=== PATIENT | female | born 1970 | race American Indian/Alaskan Native ===

== ENCOUNTER 2019-07-01 13:57 | Emergency (ER) | payer SELFPAY ==
--- NOTE | 2019-07-01 14:21 | EDM.PDOC ---
ED HPI GENERAL MEDICAL PROBLEM - General Chief Complaint: Neuro Symptoms/Deficits Stated Complaint: CRAMPING NUMBNESS LEFT SIDE Time Seen by Provider: 07/01/19 14:15 Source of Information: Reports: Patient, Family, Old Records, RN, RN Notes Reviewed History Limitations: Reports: Altered Mental Status - History of Present Illness INITIAL COMMENTS - FREE TEXT/NARRATIVE: Pt presents to ER from home by POV with c/o sudden onset of anxiety, rapid breathing, then the left side of her body went numb, and both hands cramped up, and then her legs cramped up. Pt states she also felt tingling around her mouth. She drank 2 pint bottles of Schnapps to try and feel better, but then decided to come to the ER. Pt states she has been very thirsty for 2 weeks. wire wheeler noted the above symptoms and found the pt to have an asymmetrical smile and called a "STROKE CODE". Pt denies Hx of CVA or TIA. She denies visual changes, difficulty swallowing, fever, chills, N/V, or chest pain. Onset: Today, Sudden Duration: Resolved Prior to Arrival Location: Reports: Upper Extremity, Left, Lower Extremity, Left, Generalized Quality: Reports: Other (Denies pain) Severity: Severe Improves with: Reports: None Worsens with: Reports: None Associated Symptoms: Reports: No Other Symptoms Left Leg Pain Score (Numeric/FACES): 5 - Related Data Allergies Allergy/AdvReac Type Severity Reaction Status Date / Time No Known Allergies Allergy Verified 06/22/18 11:35 Home Meds: Home Meds . [No Known Home Meds] 06/22/18 [History] Past Medical History HEENT History: Reports: Impaired Vision Cardiovascular History: Reports: None Respiratory History: Reports: None Gastrointestinal History: Reports: None Genitourinary History: Reports: None FLOWER GROWER History: Reports: None Musculoskeletal History: Reports: None Neurological History: Reports: None Psychiatric History: Reports: None Endocrine/Metabolic History: Reports: None Hematologic History: Reports: None Immunologic History: Reports: None Oncologic (Cancer) History: Reports: None Dermatologic History: Reports: None - Infectious Disease History Infectious Disease History: Reports: None - Past Surgical History Head Surgeries/Procedures: Reports: None Social & Family History - Family History Family Medical History: Noncontributory - Tobacco Use Smoking Status *Q: Current Every Day Smoker Tobacco Use Within Last Twelve Months: Cigarettes - Caffeine Use Caffeine Use: Reports: Soda - Alcohol Use Alcohol Use History: Yes Date of Last Drink: 07/01/19 Time of Last Drink: 14:00 Alcohol Use Frequency: Binges - Living Situation & Occupation Living situation: Reports: with Family Occupation: Unemployed ED ROS GENERAL - Review of Systems Review Of Systems: Comprehensive ROS is negative, except as noted in HPI. ED EXAM, NEURO - Physical Exam Exam: See Below Exam Limited By: Intoxication General Appearance: Alert, No Apparent Distress, Anxious, Obese, Other (Unkept appearance) Eye Exam: Bilateral Eye: EOMI, Nystagmus (Lateral gaze), PERRL Ears: Normal External Exam, Hearing Grossly Normal Nose: Normal Inspection, Normal Mucosa, No Blood Throat/Mouth: Normal Lips, Normal Oropharynx, Normal Voice, No Airway Compromise , Other (Several missing teeth) Head Exam: Atraumatic, Normocephalic Neck: Normal Inspection, Supple, Non-Tender, Full Range of Motion. No: Carotid Bruit, Lymphadenopathy (L), Lymphadenopathy (R) Respiratory/Chest: No Respiratory Distress, Lungs Clear, Normal Breath Sounds, No Accessory Muscle Use, Chest Non-Tender Cardiovascular: Normal Peripheral Pulses, Regular Rate, Rhythm, No Edema GI/Abdominal: Normal Bowel Sounds, Soft, Non-Tender, No Distention, Other ( Benign obese abdomen) (Female) Exam: Deferred Rectal (Female) Exam: Deferred Neurological: Alert, Normal Mood/Affect, Normal Dorsiflexion, CN II-XII Intact, Normal Plantar Flexion, Normal Gait, Normal Reflexes, No Motor/Sensory Deficits , Oriented x 3, Other (NIH Stroke Score: 0, Pt appears intoxicated.) Back Exam: Normal Inspection Extremities: Normal Inspection, Normal Range of Motion, Non-Tender, No Pedal Edema, Normal Capillary Refill Psychiatric: Anxious Skin Exam: Warm, Dry, Intact, Normal Color, No Rash EKG INTERPRETATION EKG Date: 07/01/19 Time: 14:33 Rhythm: Other (Sinus Tachy) Rate (Beats/Min): 105 [place]: Normal P-Wave: Present QRS: Other (Anterior Q waves) ST-T: Normal QT: Prolonged (borderline) Comparison: NA - No Prior EKG Course - Vital Signs Last Recorded V/S: Last Vital Signs Temp 97.9 F 07/01/19 14:20 Pulse 86 07/01/19 14:20 Resp 18 07/01/19 14:20 BP 132/97 H 07/01/19 14:20 Pulse Ox 96 07/01/19 14:20 - Orders/Labs/Meds Orders: Active Orders 24 hr Category Date Time Status Blood Glucose Check, Bedside [RC] ONETIME Care 07/01/19 14:22 Active Blood Glucose Check, Bedside [RC] ONETIME Care 07/01/19 14:45 Active Blood Glucose Check, Bedside [RC] ONETIME Care 07/01/19 15:22 Active Blood Glucose Check, Bedside [RC] ONETIME Care 07/01/19 16:08 Active EKG 12 Lead [EKG Documentation Completion] [RC] STAT Care 07/01/19 14:21 Active NIH Stroke Scale [RC] ASDIRECTED Care 07/01/19 14:21 Active Peripheral IV Care [RC] . DIRECTED Care 07/01/19 14:22 Active Chest 1V Frontal [CR] Stat Exams 07/01/19 14:21 Taken GLUCOSE,POC [POC] Routine Lab 07/01/19 15:43 Received GLUCOSE,POC [POC] Routine Lab 07/01/19 16:31 Received GLYCOSYLATED HEMOGLOBIN (HA1C) [REF] Stat Lab 07/01/19 14:35 Received Sodium Chloride 0.9% [Saline Flush] Med 07/01/19 14:21 Active 10 ml FLUSH ASDIRECTED PRN Peripheral IV Insertion Adult [OM.PC] Stat Oth 07/01/19 14:21 Ordered Medication Orders Sodium Chloride (Saline Flush) 10 ml FLUSH ASDIRECTED PRN PRN Reason: Keep Vein Open Last Admin: 07/01/19 15:09 Dose: 10 ml Admin: 07/01/19 14:43 Dose: 10 ml Labs: Laboratory Tests 07/01/19 07/01/19 07/01/19 Range/Units 14:29 14:35 14:35 WBC 6.4 (5.0-10.0) 10^3/uL RBC 3.99 L (4.2-5.4) 10^6/uL Hgb 13.8 (12.0-16.0) g/dL Hct 39.8 (37.0-47.0) % MCV 99.7 (80-100) fL MCH 34.6 H (27.0-34.0) pg MCHC 34.7 (33.0-35.0) g/dL Plt Count 181 (150-450) 10^3/uL Neut % (Auto) 53.6 (42.2-75.2) % Lymph % (Auto) 35.3 (20.5-50.1) % Wharton % (Auto) 8.8 H (2-8) % Eos % (Auto) 2.0 (1.0-3.0) % Baso % (Auto) 0.3 (0.0-1.0) % PT 9.0 (9.0-12.0) SEC INR 0.9 (0.9-1.2) APTT 20.6 L (22.0-34.0) SEC Sodium (135-145) mmol/L Potassium (3.6-5.0) mmol/L Chloride (101-111) mmol/L Carbon Dioxide (21.0-31.0) mmol/L Anion Gap BUN (7-18) mg/dL Creatinine (0.6-1.3) mg/dL Est Cr Clr Drug Dosing Estimated GFR (MDRD) BUN/Creatinine Ratio Glucose (74-105) mg/dL POC Glucose 449 H* (70-105) mg/dl Lactic Acid (0.5-2.2) mmol/L Calcium (8.4-10.2) mg/dl Magnesium (1.8-2.5) mg/dL Total Bilirubin (0.2-1.0) mg/dL AST (10-42) IU/L ALT (10-60) IU/L Alkaline Phosphatase (42-121) IU/L Troponin I (0.00-0.02) ng/ml Total Protein (6.7-8.2) g/dl Albumin (3.2-5.5) g/dl Globulin Albumin/Globulin Ratio Urine Color (YELLOW) Urine Appearance (CLEAR) Urine pH (5.0-9.0) Ur Specific Hope (1.005-1.030) Urine Protein (NEGATIVE) Urine Glucose (UA) (NEGATIVE) Urine Ketones (NEGATIVE) Urine Occult Blood (NEGATIVE) Urine Nitrite (NEGATIVE) Urine Bilirubin (NEGATIVE) Urine Urobilinogen (0.2-1.0) mg/dL Ur Leukocyte Esterase (NEGATIVE) Urine Opiates Screen (NEGATIVE) Ur Oxycodone Screen (NEGATIVE) Urine Methadone Screen (NEGATIVE) Ur Barbiturates Screen (NEGATIVE) U Tricyclic Antidepress (NEGATIVE) Ur Phencyclidine Scrn (NEGATIVE) Ur Amphetamine Screen (NEGATIVE) U Methamphetamines Scrn (NEGATIVE) Urine MDMA Screen (NEGATIVE) U Benzodiazepines Scrn (NEGATIVE) Urine Cocaine Screen (NEGATIVE) U Marijuana (THC) Screen (NEGATIVE) Ethyl Alcohol mg/dL Ketones 07/01/19 07/01/19 07/01/19 Range/Units 14:35 14:35 14:35 WBC (5.0-10.0) 10^3/uL RBC (4.2-5.4) 10^6/uL Hgb (12.0-16.0) g/dL Hct (37.0-47.0) % MCV (80-100) fL MCH (27.0-34.0) pg MCHC (33.0-35.0) g/dL Plt Count (150-450) 10^3/uL Neut % (Auto) (42.2-75.2) % Lymph % (Auto) (20.5-50.1) % Wharton % (Auto) (2-8) % Eos % (Auto) (1.0-3.0) % Baso % (Auto) (0.0-1.0) % PT (9.0-12.0) SEC INR (0.9-1.2) APTT (22.0-34.0) SEC Sodium 132 L D (135-145) mmol/L Potassium 3.3 L (3.6-5.0) mmol/L Chloride 94 L D (101-111) mmol/L Carbon Dioxide 25.0 (21.0-31.0) mmol/L Anion Gap 16.3 BUN 8 (7-18) mg/dL Creatinine 1.2 (0.6-1.3) mg/dL Est Cr Clr Drug Dosing TNP Estimated GFR (MDRD) 48 BUN/Creatinine Ratio 6.66 Glucose 501 H* (74-105) mg/dL POC Glucose (70-105) mg/dl Lactic Acid 3.0 H (0.5-2.2) mmol/L Calcium 8.1 L (8.4-10.2) mg/dl Magnesium 2.0 (1.8-2.5) mg/dL Total Bilirubin 0.8 (0.2-1.0) mg/dL AST 154 H (10-42) IU/L ALT 100 H (10-60) IU/L Alkaline Phosphatase 111 (42-121) IU/L Troponin I < 0.02 (0.00-0.02) ng/ml Total Protein 6.9 (6.7-8.2) g/dl Albumin 3.2 (3.2-5.5) g/dl Globulin 3.7 Albumin/Globulin Ratio 0.86 Urine Color (YELLOW) Urine Appearance (CLEAR) Urine pH (5.0-9.0) Ur Specific Hope (1.005-1.030) Urine Protein (NEGATIVE) Urine Glucose (UA) (NEGATIVE) Urine Ketones (NEGATIVE) Urine Occult Blood (NEGATIVE) Urine Nitrite (NEGATIVE) Urine Bilirubin (NEGATIVE) Urine Urobilinogen (0.2-1.0) mg/dL Ur Leukocyte Esterase (NEGATIVE) Urine Opiates Screen (NEGATIVE) Ur Oxycodone Screen (NEGATIVE) Urine Methadone Screen (NEGATIVE) Ur Barbiturates Screen (NEGATIVE) U Tricyclic Antidepress (NEGATIVE) Ur Phencyclidine Scrn (NEGATIVE) Ur Amphetamine Screen (NEGATIVE) U Methamphetamines Scrn (NEGATIVE) Urine MDMA Screen (NEGATIVE) U Benzodiazepines Scrn (NEGATIVE) Urine Cocaine Screen (NEGATIVE) U Marijuana (THC) Screen (NEGATIVE) Ethyl Alcohol 155 mg/dL Ketones 07/01/19 07/01/19 07/01/19 Range/Units 14:35 14:36 14:36 WBC (5.0-10.0) 10^3/uL RBC (4.2-5.4) 10^6/uL Hgb (12.0-16.0) g/dL Hct (37.0-47.0) % MCV (80-100) fL MCH (27.0-34.0) pg MCHC (33.0-35.0) g/dL Plt Count (150-450) 10^3/uL Neut % (Auto) (42.2-75.2) % Lymph % (Auto) (20.5-50.1) % [place]arton % (Auto) (2-8) % Eos % (Auto) (1.0-3.0) % Baso % (Auto) (0.0-1.0) % PT (9.0-12.0) SEC INR (0.9-1.2) APTT (22.0-34.0) SEC Sodium (135-145) mmol/L Potassium (3.6-5.0) mmol/L Chloride (101-111) mmol/L Carbon Dioxide (21.0-31.0) mmol/L Anion Gap BUN (7-18) mg/dL Creatinine (0.6-1.3) mg/dL Est Cr Clr Drug Dosing Estimated GFR (MDRD) BUN/Creatinine Ratio Glucose (74-105) mg/dL POC Glucose (70-105) mg/dl Lactic Acid (0.5-2.2) mmol/L Calcium (8.4-10.2) mg/dl Magnesium (1.8-2.5) mg/dL Total Bilirubin (0.2-1.0) mg/dL AST (10-42) IU/L ALT (10-60) IU/L Alkaline Phosphatase (42-121) IU/L Troponin I (0.00-0.02) ng/ml Total Protein (6.7-8.2) g/dl Albumin (3.2-5.5) g/dl Globulin Albumin/Globulin Ratio Urine Color Yellow (YELLOW) Urine Appearance Clear (CLEAR) Urine pH 7.0 (5.0-9.0) Ur Specific Hope 1.010 (1.005-1.030) Urine Protein Negative (NEGATIVE) Urine Glucose (UA) >=1000 H (NEGATIVE) Urine Ketones Negative (NEGATIVE) Urine Occult Blood Negative (NEGATIVE) Urine Nitrite Negative (NEGATIVE) Urine Bilirubin Negative (NEGATIVE) Urine Urobilinogen 1.0 (0.2-1.0) mg/dL Ur Leukocyte Esterase Negative (NEGATIVE) Urine Opiates Screen Negative (NEGATIVE) Ur Oxycodone Screen Negative (NEGATIVE) Urine Methadone Screen Negative (NEGATIVE) Ur Barbiturates Screen Negative (NEGATIVE) U Tricyclic Antidepress Negative (NEGATIVE) Ur Phencyclidine Scrn Negative (NEGATIVE) Ur Amphetamine Screen Negative (NEGATIVE) U Methamphetamines Scrn Negative (NEGATIVE) Urine MDMA Screen Negative (NEGATIVE) U Benzodiazepines Scrn Negative (NEGATIVE) Urine Cocaine Screen Negative (NEGATIVE) U Marijuana (THC) Screen Negative (NEGATIVE) Ethyl Alcohol mg/dL Ketones Negative 07/01/19 Range/Units 15:01 WBC (5.0-10.0) 10^3/uL RBC (4.2-5.4) 10^6/uL Hgb (12.0-16.0) g/dL Hct (37.0-47.0) % MCV (80-100) fL MCH (27.0-34.0) pg MCHC (33.0-35.0) g/dL Plt Count (150-450) 10^3/uL Neut % (Auto) (42.2-75.2) % Lymph % (Auto) (20.5-50.1) % [place] % (Auto) (2-8) % Eos % (Auto) (1.0-3.0) % Baso % (Auto) (0.0-1.0) % PT (9.0-12.0) SEC INR (0.9-1.2) APTT (22.0-34.0) SEC Sodium (135-145) mmol/L Potassium (3.6-5.0) mmol/L Chloride (101-111) mmol/L Carbon Dioxide (21.0-31.0) mmol/L Anion Gap BUN (7-18) mg/dL Creatinine (0.6-1.3) mg/dL Est Cr Clr Drug Dosing Estimated GFR (MDRD) BUN/Creatinine Ratio Glucose (74-105) mg/dL POC Glucose 446 H* (70-105) mg/dl Lactic Acid (0.5-2.2) mmol/L Calcium (8.4-10.2) mg/dl Magnesium (1.8-2.5) mg/dL Total Bilirubin (0.2-1.0) mg/dL AST (10-42) IU/L ALT (10-60) IU/L Alkaline Phosphatase (42-121) IU/L Troponin I (0.00-0.02) ng/ml Total Protein (6.7-8.2) g/dl Albumin (3.2-5.5) g/dl Globulin Albumin/Globulin Ratio Urine Color (YELLOW) Urine Appearance (CLEAR) Urine pH (5.0-9.0) Ur Specific [place] (1.005-1.030) Urine Protein (NEGATIVE) Urine Glucose (UA) (NEGATIVE) Urine Ketones (NEGATIVE) Urine Occult Blood (NEGATIVE) Urine Nitrite (NEGATIVE) Urine Bilirubin (NEGATIVE) Urine Urobilinogen (0.2-1.0) mg/dL Ur Leukocyte Esterase (NEGATIVE) Urine Opiates Screen (NEGATIVE) Ur Oxycodone Screen (NEGATIVE) Urine Methadone Screen (NEGATIVE) Ur Barbiturates Screen (NEGATIVE) U Tricyclic Antidepress (NEGATIVE) Ur Phencyclidine Scrn (NEGATIVE) Ur Amphetamine Screen (NEGATIVE) U Methamphetamines Scrn (NEGATIVE) Urine MDMA Screen (NEGATIVE) U Benzodiazepines Scrn (NEGATIVE) Urine Cocaine Screen (NEGATIVE) U Marijuana (THC) Screen (NEGATIVE) Ethyl Alcohol mg/dL Ketones Meds: Medications Generic Name Dose Route Start Last Admin Trade Name Freq PRN Reason Stop Dose Admin Sodium Chloride 10 ml 07/01/19 14:21 07/01/19 15:09 Saline Flush FLUSH 10 ml ASDIRECTED PRN Administration Keep Vein Open Discontinued Medications Generic Name Dose Route Start Last Admin Trade Name Freq PRN Reason Stop Dose Admin Sodium Chloride 1,000 mls @ 999 mls/hr 07/01/19 14:44 07/01/19 15:03 Normal Saline IV 07/01/19 15:44 999 mls/hr .BOLUS ONE Administration Insulin Human Regular 10 unit 07/01/19 14:45 07/01/19 15:04 Humulin R SUBCUT 07/01/19 14:46 10 units ONETIME ONE Administration - Radiology Interpretation Free Text/Narrative:: CT Head: chronic microvascular changes, pansinusitis, no acute findings per Rad. report. CXR: no acute process, see Rad. report. 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 use Qualified Code(s ): E11.65 - Type 2 diabetes mellitus with hyperglycemia Acute alcohol intoxication Qualifiers: Complication of substance-induced condition: with unspecified complication Qualified Code(s): F10.929 - Alcohol use, unspecified with intoxication, unspecified Pansinusitis Qualifiers: Chronicity: unspecified Qualified Code(s): J32.4 - Chronic pansinusitis - Discharge Information *PRESCRIPTION DRUG MONITORING PROGRAM REVIEWED*: No *COPY OF PRESCRIPTION DRUG MONITORING REPORT IN PATIENT HELENE: No Instructions: Type 2 Diabetes Mellitus, Diagnosis, Adult, Alcohol Use Disorder , Panic Attack, [id number], Sinusitis, Adult, [id number] Forms: ED Department Discharge Additional Instructions: Rx: Metformin 1000mg Rx: Augmentin 875mg Abstain from alcohol consumption. Drink plenty of water. Avoid sugary foods. Limit intake of breads, rice, potato, corn and other. Look at [email or web address] for dietary information. Try to quit smoking. Follow up in clinic in the next 3 to 5 days for further diabetic evaluation and treatment. Sepsis Event Note - Focused Exam Vital Signs: Vital Signs Temp Pulse Resp BP Pulse Ox 07/01/19 14:20 97.9 F 86 18 132/97 H 96 Date Exam was Performed: 07/01/19 Time Exam was Performed: 16:33 - My Orders Last 24 Hours: My Active Orders 07/01/19 14:21 EKG 12 Lead [EKG Documentation Completion] [RC] STAT NIH Stroke Scale [RC] ASDIRECTED Chest 1V Frontal [CR] Stat Sodium Chloride 0.9% [Saline Flush] 10 ml FLUSH ASDIRECTED PRN Peripheral IV Insertion Adult [OM.PC] Stat 07/01/19 14:22 Blood Glucose Check, Bedside [RC] ONETIME Peripheral IV Care [RC] . DIRECTED 07/01/19 14:35 GLYCOSYLATED HEMOGLOBIN (HA1C) [REF] Stat 07/01/19 14:45 Blood Glucose Check, Bedside [RC] ONETIME 07/01/19 15:22 Blood Glucose Check, Bedside [RC] ONETIME 07/01/19 15:43 GLUCOSE,POC [POC] Routine 07/01/19 16:08 Blood Glucose Check, Bedside [RC] ONETIME 07/01/19 16:31 GLUCOSE,POC [POC] Routine - Assessment/Plan Last 24 Hours: My Active Orders 07/01/19 14:21 EKG 12 Lead [EKG Documentation Completion] [RC] STAT NIH Stroke Scale [RC] ASDIRECTED Chest 1V Frontal [CR] Stat Sodium Chloride 0.9% [Saline Flush] 10 ml FLUSH ASDIRECTED PRN Peripheral IV Insertion Adult [OM.PC] Stat 07/01/19 14:22 Blood Glucose Check, Bedside [RC] ONETIME Peripheral IV Care [RC] . DIRECTED 07/01/19 14:35 GLYCOSYLATED HEMOGLOBIN (HA1C) [REF] Stat 07/01/19 14:45 Blood Glucose Check, Bedside [RC] ONETIME 07/01/19 15:22 Blood Glucose Check, Bedside [RC] ONETIME 07/01/19 15:43 GLUCOSE,POC [POC] Routine 07/01/19 16:08 Blood Glucose Check, Bedside [RC] ONETIME 07/01/19 16:31 GLUCOSE,POC [POC] Routine
--- NOTE | 2019-07-01 14:37 | CT ---
EXAMINATION: Head wo Cont SEX: Female AGE: 49 years CLINICAL HISTORY: 49-year-old female acute onset of weakness and slurred speech. STROKE CODE: Scan technique: Volume acquisition of data emergency unenhanced CT scan of the head and brain obtained with the patient lying supine on the Siemens multi slice scanner [place], [place]. All data archived in the PAC system for storage, reformatting axial/sagittal/coronal planes and study (bone/brain windows). INTERPRETATION: 1. Uniformly thick bony calvarium without sign of skull fracture, underlying brain contusion or epidural/subdural hematoma. 2. Atrophy out of proportion to age symmetric with underlying mirror-image normal ventricular system. No hydrocephalus. 3. Subtle scattered areas of decreased attenuation identified throughout the periventricular white matter and subcortical back matter of both cerebral hemispheres characteristic of microvascular ischemic changes. Diabetic? Hypertension? 4. Physiologic midline pineal and symmetric choroid plexus calcifications. No intracerebral/intraventricular/subarachnoid bleed. 5. No supratentorial or posterior fossa mass lesion. Cerebellum and brainstem unremarkable. 6. Extensive mucoperiosteal inflammation involving the maxillary, ethmoid and sphenoid sinuses bilaterally i.e. SINUSITIS. Symmetric clear pneumatization of the mastoid sinuses bilaterally. CONCLUSION: Pansinusitis. Chronic microvascular ischemic changes. No sign of acute intracranial bleed. No intracranial mass or hydrocephalus.
[2019-07-01] MEDS: Sodium Chloride 0.9% 10 ML Syringe FLUSH PRN ×2 (14:43→15:09)
[2019-07-01] MEDS ORDERED: Sodium Chloride 0.9% 1,000 ML IV ONE (14:44)
[2019-07-01] MEDS ORDERED: Insulin Regular, Human 100 Units/ML 3 ML Vial SUBCUT ONE (14:45)
[2019-07-01 15:04] LABS: ANION GAP 16.3; CHLORIDE,CL 94 mmol/L (101-111); SODIUM,NA 132 mmol/L (135-145)
--- NOTE | 2019-07-01 17:05 | CR ---
EXAMINATION: Chest 1V Frontal SEX: Female AGE: 49 years CLINICAL HISTORY: 49-year-old obese female with weakness and slurred speech. STROKE CODE: poss. aspiration. INTERPRETATION: 1. Eventration right hemidiaphragm. Normal cardiac silhouette and bony thorax. 2. No new signs of heart failure, lung mass or focal lobar pneumonia when compared directly back to 22 June 2018 exam. 3. No lung mass, hilar lymphadenopathy or focal lobar pneumonia. 4. No atelectasis/collapse. No pneumothorax. CONCLUSION: No acute new cardiopulmonary abnormality.
== END 2019-07-01 16:54 | disposition home or self-care (01) ==
LOC: DL.ED 13:57
DX: F41.0 Panic disorder [episodic paroxysmal anxiety] (principal); J32.4 Chronic pansinusitis; E11.65 Type 2 diabetes mellitus with hyperglycemia; R74.8 Abnormal levels of other serum enzymes; F10.129 Alcohol abuse with intoxication, unspecified; Y90.6 Blood alcohol level of 120-199 mg/100 ml; F17.210 Nicotine dependence, cigarettes, uncomplicated
CPT/HCPCS: 36415; 70450; 71045; 80053; 80305; 80320; 81003; 82009; 82962; 83036; 83605; 83735; 84484; 85025; 85610; 85730; 93005; 96360; 99284; J1815; J7030; G0480

== ENCOUNTER 2019-09-23 16:03 | Emergency (ER) | payer SELFPAY ==
[2019-09-23] MEDS ORDERED: Insulin Regular, Human 100 Units/ML 3 ML Vial SUBCUT ONE (17:27)
== END 2019-09-23 17:18 | disposition left against medical advice (07) ==
LOC: DL.ED 16:03
DX: Z53.21 Procedure and treatment not carried out due to patient leaving prior to being seen by health care provider (principal)
CPT/HCPCS: 82962

== ENCOUNTER 2019-10-06 20:46 | Emergency (ER) | payer SELFPAY ==
[2019-10-06] MEDS ORDERED: Insulin Regular, Human 100 Units/ML 3 ML Vial IV ONE (20:58)
[2019-10-06] MEDS ORDERED: Sodium Chloride 0.9% 1,000 ML IV ONE (21:09)
--- NOTE | 2019-10-06 21:33 | EDM.PDOC ---
ED HPI GENERAL MEDICAL PROBLEM - General Chief Complaint: Diabetic Complaint Stated Complaint: DIABETES PROBLEMS Time Seen by Provider: 10/06/19 20:55 Source of Information: Reports: Patient, RN Notes Reviewed History Limitations: Reports: Intoxication - History of Present Illness INITIAL COMMENTS - FREE TEXT/NARRATIVE: ED with c/o hi blood sugar of 510 tonight, usually when takes it it is 475. Diagnosed with type 11 in June, has not done any clinic follow up, states doesn't have time because she is in mourning. Spouse 6 months ago. Checks blood sugar about every 2 weeks, Took one of his metformin tonight. Requesting inhaler for COPD. No reported fever or chills. No vomiting. Faint odor ETOH. 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 Musculoskeletal History: Reports: None Neurological History: Reports: None Psychiatric History: Reports: Addiction Endocrine/Metabolic History: Reports: Diabetes, Type II, Obesity/BMI 30+ Hematologic History: Reports: None Immunologic History: Reports: None Oncologic (Cancer) History: Reports: None Dermatologic History: Reports: None - Infectious Disease History Infectious Disease History: Reports: None - Past Surgical History Head Surgeries/Procedures: Reports: None Social & Family History - Family History Family Medical History: Noncontributory - Tobacco Use Smoking Status *Q: Current Every Day Smoker Years of Tobacco use: 21 Packs/Tins Daily: 0.1 Used Tobacco, but Quit: No Second Hand Smoke Exposure: Yes - Caffeine Use Caffeine Use: Reports: Coffee - Alcohol Use Date of Last Drink: 10/06/19 Time of Last Drink: 19:00 - Recreational Drug Use Recreational Drug Use: No - Living Situation & Occupation Living situation: Reports: with Family Occupation: Unemployed ED ROS GENERAL - Review of Systems Review Of Systems: Comprehensive ROS is negative, except as noted in HPI. ED EXAM GENERAL NO PERIP PULSE - Physical Exam Exam: See Below Exam Limited By: No Limitations General Appearance: Alert, Anxious, Obese Eye Exam: Bilateral Eye: EOMI Ears: Normal External Exam Nose: Normal Inspection Throat/Mouth: Normal Inspection Head: Atraumatic, Normocephalic Respiratory/Chest: No Respiratory Distress, Lungs Clear, Normal Breath Sounds, Other (ocassional dry cough) Cardiovascular: Regular Rate, Rhythm, No Edema GI/Abdominal: Normal Bowel Sounds Neurological: Alert, Oriented Psychiatric: Anxious, Other (intoxicated) Course - Vital Signs Last Recorded V/S: Last Vital Signs Temp 96.8 F L 10/06/19 22:24 Pulse 98 10/06/19 22:24 Resp 21 H 10/06/19 22:24 BP 121/76 10/06/19 22:24 Pulse Ox 96 10/06/19 22:24 - Orders/Labs/Meds Orders: Active Orders 24 hr Category Date Time Status Glucose [Blood Glucose Check, Bedside] [RC] ONETIME Care 10/06/19 21:20 Active Glucose [Blood Glucose Check, Bedside] [RC] ONETIME Care 10/06/19 21:45 Active Glucose [Blood Glucose Check, Bedside] [RC] ONETIME Care 10/06/19 21:59 Active CXR [Chest 1V Frontal] [CR] Urgent Exams 10/06/19 21:21 Taken CHLAMYDIA AND GONORRHEA BY [facility] Urgent Lab 10/06/19 20:54 Received CULTURE URINE [RM] Stat Lab 10/06/19 20:56 Received Labs: Laboratory Tests 10/06/19 10/06/19 10/06/19 Range/Units 20:50 20:56 20:56 WBC (5.0-10.0) 10^3/uL RBC (4.2-5.4) 10^6/uL Hgb (12.0-16.0) g/dL Hct (37.0-47.0) % MCV (80-100) fL MCH (27.0-34.0) pg MCHC (33.0-35.0) g/dL Plt Count (150-450) 10^3/uL Neut % (Auto) (42.2-75.2) % Lymph % (Auto) (20.5-50.1) % [place] % (Auto) (2-8) % Eos % (Auto) (1.0-3.0) % Baso % (Auto) (0.0-1.0) % Sodium (136-145) mmol/L Potassium (3.5-5.1) mmol/L Chloride (98-107) mmol/L Carbon Dioxide (21-32) mmol/L Anion Gap (7-13) mEq/L BUN (7-18) mg/dL Creatinine (0.55-1.02) mg/dL Est Cr Clr Drug Dosing mL/min Estimated GFR (MDRD) BUN/Creatinine Ratio (No establ ref range) Glucose (74-99) mg/dL POC Glucose 438 H* (70-105) mg/dl Lactic Acid (0.4-2.0) mmol/L Calcium (8.5-10.1) mg/dL Total Bilirubin (0.2-1.0) mg/dL AST (15-37) U/L ALT (14-59) U/L Alkaline Phosphatase (46-116) U/L Total Protein (6.4-8.2) g/dL Albumin (3.4-5.0) g/dL Globulin Albumin/Globulin Ratio Amylase (25-115) U/L Lipase (73-393) U/L Urine Color Light yellow (YELLOW) Urine Appearance Slightly cloudy (CLEAR) Urine pH 6.5 (5.0-9.0) Ur Specific [place] 1.010 (1.005-1.030) Urine Protein Negative (NEGATIVE) Urine Glucose (UA) 500 H (NEGATIVE) Urine Ketones Negative (NEGATIVE) Urine Occult Blood Trace-intact H (NEGATIVE) Urine Nitrite Positive H (NEGATIVE) Urine Bilirubin Negative (NEGATIVE) Urine Urobilinogen 1.0 (0.2-1.0) mg/dL Ur Leukocyte Esterase Negative (NEGATIVE) Urine RBC 0-5 /HPF Urine WBC 5-10 H (0-5/HPF) /HPF Ur Epithelial Cells Few (NOT SEEN) /HPF Amorphous Sediment Few (NOT SEEN) /HPF Urine Bacteria Many H (0-FEW/HPF) /HPF Urine Mucus Moderate H (NOT SEEN) /LPF Urine Trichomonas Present H (NOT SEEN) /HPF Urine Opiates Screen Negative (NEGATIVE) Ur Oxycodone Screen Negative (NEGATIVE) Urine Methadone Screen Negative (NEGATIVE) Ur Barbiturates Screen Negative (NEGATIVE) U Tricyclic Antidepress Negative (NEGATIVE) Ur Phencyclidine Scrn Negative (NEGATIVE) Ur Amphetamine Screen Negative (NEGATIVE) U Methamphetamines Scrn Negative (NEGATIVE) Urine MDMA Screen Negative (NEGATIVE) U Benzodiazepines Scrn Negative (NEGATIVE) Urine Cocaine Screen Negative (NEGATIVE) U Marijuana (THC) Screen Negative (NEGATIVE) Ethyl Alcohol (0) mg/dL 10/06/19 10/06/19 10/06/19 Range/Units 21:03 21:03 21:03 WBC 8.4 (5.0-10.0) 10^3/uL RBC 4.59 (4.2-5.4) 10^6/uL Hgb 15.5 D (12.0-16.0) g/dL Hct 44.9 (37.0-47.0) % MCV 97.8 (80-100) fL MCH 33.8 (27.0-34.0) pg MCHC 34.5 (33.0-35.0) g/dL Plt Count 192 (150-450) 10^3/uL Neut % (Auto) 52.4 (42.2-75.2) % Lymph % (Auto) 38.9 (20.5-50.1) % [place] % (Auto) 5.6 (2-8) % Eos % (Auto) 2.6 (1.0-3.0) % Baso % (Auto) 0.5 (0.0-1.0) % Sodium 134 L (136-145) mmol/L Potassium 3.6 (3.5-5.1) mmol/L Chloride 93 L (98-107) mmol/L Carbon Dioxide 28 (21-32) mmol/L Anion Gap 16.6 H (7-13) mEq/L BUN 3 L (7-18) mg/dL Creatinine 0.97 (0.55-1.02) mg/dL Est Cr Clr Drug Dosing 64.52 mL/min Estimated GFR (MDRD) > 60 BUN/Creatinine Ratio 3.1 (No establ ref range) Glucose 544 H* (74-99) mg/dL POC Glucose (70-105) mg/dl Lactic Acid 3.9 H* (0.4-2.0) mmol/L Calcium 8.8 (8.5-10.1) mg/dL Total Bilirubin 0.4 (0.2-1.0) mg/dL AST 65 H (15-37) U/L ALT 71 H (14-59) U/L Alkaline Phosphatase 162 H (46-116) U/L Total Protein 7.7 (6.4-8.2) g/dL Albumin 3.8 (3.4-5.0) g/dL Globulin 3.9 Albumin/Globulin Ratio 1.0 Amylase 38 (25-115) U/L Lipase 293 (73-393) U/L Urine Color (YELLOW) Urine Appearance (CLEAR) Urine pH (5.0-9.0) Ur Specific [place] (1.005-1.030) Urine Protein (NEGATIVE) Urine Glucose (UA) (NEGATIVE) Urine Ketones (NEGATIVE) Urine Occult Blood (NEGATIVE) Urine Nitrite (NEGATIVE) Urine Bilirubin (NEGATIVE) Urine Urobilinogen (0.2-1.0) mg/dL Ur Leukocyte Esterase (NEGATIVE) Urine RBC /HPF Urine WBC (0-5/HPF) /HPF Ur Epithelial Cells (NOT SEEN) /HPF Amorphous Sediment (NOT SEEN) /HPF Urine Bacteria (0-FEW/HPF) /HPF Urine Mucus (NOT SEEN) /LPF Urine Trichomonas (NOT SEEN) /HPF Urine Opiates Screen (NEGATIVE) Ur Oxycodone Screen (NEGATIVE) Urine Methadone Screen (NEGATIVE) Ur Barbiturates Screen (NEGATIVE) U Tricyclic Antidepress (NEGATIVE) Ur Phencyclidine Scrn (NEGATIVE) Ur Amphetamine Screen (NEGATIVE) U Methamphetamines Scrn (NEGATIVE) Urine MDMA Screen (NEGATIVE) U Benzodiazepines Scrn (NEGATIVE) Urine Cocaine Screen (NEGATIVE) U Marijuana (THC) Screen (NEGATIVE) Ethyl Alcohol 228 (0) mg/dL 10/06/19 Range/Units 21:42 WBC (5.0-10.0) 10^3/uL RBC (4.2-5.4) 10^6/uL Hgb (12.0-16.0) g/dL Hct (37.0-47.0) % MCV (80-100) fL MCH (27.0-34.0) pg MCHC (33.0-35.0) g/dL Plt Count (150-450) 10^3/uL Neut % (Auto) (42.2-75.2) % Lymph % (Auto) (20.5-50.1) % [place] % (Auto) (2-8) % Eos % (Auto) (1.0-3.0) % Baso % (Auto) (0.0-1.0) % Sodium (136-145) mmol/L Potassium (3.5-5.1) mmol/L Chloride (98-107) mmol/L Carbon Dioxide (21-32) mmol/L Anion Gap (7-13) mEq/L BUN (7-18) mg/dL Creatinine (0.55-1.02) mg/dL Est Cr Clr Drug Dosing mL/min Estimated GFR (MDRD) BUN/Creatinine Ratio (No establ ref range) Glucose (74-99) mg/dL POC Glucose 263 H (70-105) mg/dl Lactic Acid (0.4-2.0) mmol/L Calcium (8.5-10.1) mg/dL Total Bilirubin (0.2-1.0) mg/dL AST (15-37) U/L ALT (14-59) U/L Alkaline Phosphatase (46-116) U/L Total Protein (6.4-8.2) g/dL Albumin (3.4-5.0) g/dL Globulin Albumin/Globulin Ratio Amylase (25-115) U/L Lipase (73-393) U/L Urine Color (YELLOW) Urine Appearance (CLEAR) Urine pH (5.0-9.0) Ur Specific [place] (1.005-1.030) Urine Protein (NEGATIVE) Urine Glucose (UA) (NEGATIVE) Urine Ketones (NEGATIVE) Urine Occult Blood (NEGATIVE) Urine Nitrite (NEGATIVE) Urine Bilirubin (NEGATIVE) Urine Urobilinogen (0.2-1.0) mg/dL Ur Leukocyte Esterase (NEGATIVE) Urine RBC /HPF Urine WBC (0-5/HPF) /HPF Ur Epithelial Cells (NOT SEEN) /HPF Amorphous Sediment (NOT SEEN) /HPF Urine Bacteria (0-FEW/HPF) /HPF Urine Mucus (NOT SEEN) /LPF Urine Trichomonas (NOT SEEN) /HPF Urine Opiates Screen (NEGATIVE) Ur Oxycodone Screen (NEGATIVE) Urine Methadone Screen (NEGATIVE) Ur Barbiturates Screen (NEGATIVE) U Tricyclic Antidepress (NEGATIVE) Ur Phencyclidine Scrn (NEGATIVE) Ur Amphetamine Screen (NEGATIVE) U Methamphetamines Scrn (NEGATIVE) Urine MDMA Screen (NEGATIVE) U Benzodiazepines Scrn (NEGATIVE) Urine Cocaine Screen (NEGATIVE) U Marijuana (THC) Screen (NEGATIVE) Ethyl Alcohol (0) mg/dL Meds: Medications Discontinued Medications Generic Name Dose Route Start Last Admin Trade Name Amber PRN Reason Stop Dose Admin Albuterol Confirm 10/06/19 21:54 10/06/19 21:59 Proventil Hfa Administered 10/06/19 21:55 Not Given Dose 6.7 gm INH .STK-MED ONE Azithromycin 1,000 mg 10/06/19 21:47 10/06/19 22:00 Zithromax PO 10/06/19 21:48 1,000 mg ONETIME ONE Administration Sodium Chloride 1,000 mls @ 999 mls/hr 10/06/19 21:09 10/06/19 21:15 Normal Saline IV 10/06/19 22:09 999 mls/hr .BOLUS ONE Administration Ceftriaxone Sodium 1 gm/ 50 mls @ 100 mls/hr 10/06/19 21:49 10/06/19 21:59 Sodium Chloride IV 10/06/19 22:18 100 mls/hr ONETIME ONE Administration Insulin Human Regular 10 unit 10/06/19 20:58 10/06/19 21:03 Humulin R IV 10/06/19 20:59 10 units ONETIME ONE Administration - Radiology Interpretation Free Text/Narrative:: CXR negtative Departure - Departure Time of Disposition: 21:59 Disposition: Home, Self-Care 01 Condition: Good Clinical Impression: infection, trichomonal, History of COPD Hyperglycemia due to type 2 diabetes mellitus Qualifiers: 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: without 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 use Qualified Code(s ): E11.65 - Type 2 diabetes mellitus with hyperglycemia Acute alcohol intoxication Qualifiers: Complication of substance-induced condition: with unspecified complication Qualified Code(s): F10.929 - Alcohol use, unspecified with intoxication, unspecified UTI (urinary tract infection) Qualifiers: Urinary tract infection type: acute cystitis Hematuria presence: without hematuria Qualified Code(s): N30.00 - Acute cystitis without hematuria - Discharge Information *PRESCRIPTION DRUG MONITORING PROGRAM REVIEWED*: No *COPY OF PRESCRIPTION DRUG MONITORING REPORT IN PATIENT HELENE: No Instructions: Urinary Tract Infection, Adult, [id number], Trichomoniasis, Type 2 Diabetes Mellitus, Diagnosis, Adult, [id number] Forms: ED Department Discharge Additional Instructions: Follow up in clinic this week stop drinking alcohol humidifier avoid tobacco smoke and other irritants cipro 500mg one twice daily for 5 days flagyl 500mg one twice daily for one week for infection. DO NOT drink while taking this medication!! albuterol 2 puffs every 4 hours as needed for cough metformin 500mg one twice daily #30 Need to see primary care/ clinic visit for additional refills Sepsis Event Note - Evaluation Sepsis Screening Result: No Definite Risk - Focused Exam Vital Signs: Vital Signs Temp Pulse Resp BP Pulse Ox 10/06/19 22:24 96.8 F L 98 21 H 121/76 96 10/06/19 20:53 97.6 F 117 H 20 161/129 H 96 10/06/19 20:52 96.5 F L 114 H 21 H 156/124 H 96 Date Exam was Performed: 10/07/19 Time Exam was Performed: 04:52 - My Orders Last 24 Hours: My Active Orders 10/06/19 20:54 CHLAMYDIA AND GONORRHEA BY [facility] Urgent 10/06/19 20:56 CULTURE URINE [RM] Stat 10/06/19 21:20 Glucose [Blood Glucose Check, Bedside] [RC] ONETIME 10/06/19 21:21 CXR [Chest 1V Frontal] [CR] Urgent 10/06/19 21:45 Glucose [Blood Glucose Check, Bedside] [RC] ONETIME 10/06/19 21:59 Glucose [Blood Glucose Check, Bedside] [RC] ONETIME - Assessment/Plan Last 24 Hours: My Active Orders 10/06/19 20:54 CHLAMYDIA AND GONORRHEA BY [facility] Urgent 10/06/19 20:56 CULTURE URINE [RM] Stat 10/06/19 21:20 Glucose [Blood Glucose Check, Bedside] [RC] ONETIME 10/06/19 21:21 CXR [Chest 1V Frontal] [CR] Urgent 10/06/19 21:45 Glucose [Blood Glucose Check, Bedside] [RC] ONETIME 10/06/19 21:59 Glucose [Blood Glucose Check, Bedside] [RC] ONETIME
[2019-10-06 21:37] LABS: ANION GAP 16.6 mEq/L (7-13); CHLORIDE,CL 93 mmol/L (98-107); SODIUM,NA 134 mmol/L (136-145)
[2019-10-06] MEDS ORDERED: Azithromycin 250 MG Tab PO ONE (21:47)
[2019-10-06] MEDS ORDERED: cefTRIAXone 1 GM in Sodium Chloride 0.9% 50 ML IV ONE (21:49)
[2019-10-06] MEDS ORDERED: Albuterol 6.7 GM Inhaler INH ONE (21:54)
== END 2019-10-06 22:40 | disposition home or self-care (01) ==
LOC: DL.ED 20:46
DX: E11.65 Type 2 diabetes mellitus with hyperglycemia (principal); N30.00 Acute cystitis without hematuria; F10.129 Alcohol abuse with intoxication, unspecified; A59.9 Trichomoniasis, unspecified; J44.9 Chronic obstructive pulmonary disease, unspecified; I10 Essential (primary) hypertension; E66.9 Obesity, unspecified; Z68.35 Body mass index [BMI] 35.0-35.9, adult; F17.210 Nicotine dependence, cigarettes, uncomplicated
CPT/HCPCS: 36415; 71045; 80053; 80305-QW; 80307; 81001; 82150; 82962; 83605; 83690; 85025; 87086; 87088; 87186; 87491; 87591; 96361; 96365; 99285-25; A9270-GY; J0696; J1815-GY; J7030; J7050

== ENCOUNTER 2019-10-27 13:36 | Emergency (ER) | payer SELFPAY ==
--- NOTE | 2019-10-27 14:37 | EDM.PDOC ---
ED HPI GENERAL MEDICAL PROBLEM - General Stated Complaint: PAIN/SWELLING OF HAND Time Seen by Provider: 10/27/19 14:10 Source of Information: Reports: Patient History Limitations: Reports: Other - History of Present Illness INITIAL COMMENTS - FREE TEXT/NARRATIVE: This 49 yo female patient reports to the ED due to pain in her hands (right worse than left), wrists, elbows, shoulders, knees and hips. The patient reports she attempted to see her primary care provider, but reports she was told to go to the ED. The patient reports she does drink a 6 pack of vodka seltzers per day. The patient reports her pain has been getting worse. The patient reports she was on prednisone up to today, but has not been feeling any better. The patient's speech was slurred throughout the visit. Duration: Day(s):, Constant, Getting Worse Location: Reports: Upper Extremity, Left, Upper Extremity, Right, Lower Extremity, Left, Lower Extremity, Right Quality: Reports: Ache, Dull Severity: Moderate Improves with: Reports: None Worsens with: Reports: None Context: Reports: Other - Related Data Allergies Allergy/AdvReac Type Severity Reaction Status Date / Time No Known Allergies Allergy Verified 10/06/19 20:54 Home Meds: Home Meds Albuterol Sulfate [Albuterol Sulfate Hfa] 2 inh INH Q4H PRN 10/06/19 [History] Past Medical History HEENT History: Reports: Impaired Vision Cardiovascular History: Reports: Hypertension Respiratory History: Reports: Asthma, COPD Gastrointestinal History: Reports: None Genitourinary History: Reports: None 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 Musculoskeletal History: Reports: None Neurological History: Reports: None Psychiatric History: Reports: Addiction Endocrine/Metabolic History: Reports: Diabetes, Type II, Obesity/BMI 30+ Hematologic History: Reports: None Immunologic History: Reports: None Oncologic (Cancer) History: Reports: None Dermatologic History: Reports: None - Infectious Disease History Infectious Disease History: Reports: None - Past Surgical History Head Surgeries/Procedures: Reports: None Social & Family History - Family History Family Medical History: Noncontributory - Caffeine Use Caffeine Use: Reports: Coffee - Living Situation & Occupation Living situation: Reports: with Family Occupation: Unemployed ED ROS GENERAL - Review of Systems Review Of Systems: Comprehensive ROS is negative, except as noted in HPI. ED EXAM, GENERAL - Physical Exam Exam: See Below Exam Limited By: Other (Poor historian, speech slurred) General Appearance: Alert, Moderate Distress Eye Exam: Bilateral Eye: EOMI, PERRL (sluggish, but reactive) Ears: Normal External Exam, Normal Canal, Hearing Grossly Normal, Normal TMs Nose: Normal Inspection, Normal Mucosa, No Blood Throat/Mouth: Normal Inspection, Normal Lips, Normal Teeth, Normal Gums, Normal Oropharynx, Normal Voice, No Airway Compromise Head: Atraumatic, Normocephalic Neck: Normal Inspection, Supple, Non-Tender, Full Range of Motion Respiratory/Chest: Lungs Clear, Normal Breath Sounds, No Accessory Muscle Use, Chest Non-Tender, Decreased Breath Sounds Cardiovascular: Normal Peripheral Pulses, Regular Rate, Rhythm GI/Abdominal: Normal Bowel Sounds, Soft, Non-Tender, No Organomegaly, No Distention, No Abnormal Bruit, No Mass (Female) Exam: Deferred Rectal (Female) Exam: Deferred Back Exam: Normal Inspection, Full Range of Motion, NT Extremities: Arm Pain (Right hand swelling with redness) Neurological: Alert, Oriented, CN II-XII Intact, Normal Cognition Skin Exam: Warm, Dry, Intact, Normal Color, No Rash Lymphatic: No Adenopathy Course - Re-Assessments/Exams Free Text/Narrative Re-Assessment/Exam: 10/27/19 14:40 The patient reports she got a call from the clinic and has an appointment tomorrow at 1030. The patient left prior to full assessment or treatment. Departure - Departure Time of Disposition: 14:26 Disposition: Against Medical Advice 07 Condition: Undetermined Clinical Impression: Arthritis - Discharge Information
== END 2019-10-27 14:26 | disposition left against medical advice (07) ==
LOC: DL.ED 13:36
DX: M19.041 Primary osteoarthritis, right hand (principal); I10 Essential (primary) hypertension; J44.9 Chronic obstructive pulmonary disease, unspecified; E11.9 Type 2 diabetes mellitus without complications; E66.9 Obesity, unspecified; Z68.36 Body mass index [BMI] 36.0-36.9, adult
CPT/HCPCS: 99283

== ENCOUNTER 2020-02-29 15:53 | Emergency (ER) | payer MEDICAID, OTHER ==
--- NOTE | 2020-02-29 15:55 | EDM.PDOC ---
"ED HPI GENERAL MEDICAL PROBLEM - General Source of Information: Reports: EMS, Old Records, RN, RN Notes Reviewed History Limitations: Reports: Other (Seizing) - History of Present Illness Onset: Today, Unknown/Unsure Duration: Recurring Location: Reports: Abdomen, Generalized Quality: Reports: Ache Severity: Severe Improves with: Reports: None Worsens with: Reports: None Associated Symptoms: Reports: No Other Symptoms, Nausea/Vomiting <Ata Nichole - Last Filed: 02/29/20 18:58> <Chai Lutz - Last Filed: 02/29/20 19:14> - General Chief Complaint: Neuro Symptoms/Deficits Stated Complaint: [place] Time Seen by Provider: 02/29/20 15:55 - History of Present Illness INITIAL COMMENTS - FREE TEXT/NARRATIVE: Pt arrives to ER by [facility] with report of several witnessed seizures at home within the last 2 hours. EMS reports pt had one brief seizure in the ambulance as well, and was give Diazepam 5mg IVP x1. Pt arrives to ER postictal and spontaneously wakes within 10 mins. of arrival and provides a detailed medical history, but does not recall the seizure(s). Pt states she has history of one seizure several years ago which she believes was due to alcohol withdrawal. She does not recall ever going to see a neurologist or having follow up for the seizure. Pt states she drinks alcohol, about 750mls of hard liquor daily. She quit drinking about 4 or 5 days ago, but started again today. Pt c/o recurring lower abdominal pain that began yesterday. Pt admits to nausea and vomiting. She denies fever, chills, flank pain, dysuria, headache, neck pain/stiffness, visual changes, diarrhea, constipation, cough, or chest pain. (Ata Nichole) - Related Data Allergies Allergy/AdvReac Type Severity Reaction Status Date / Time No Known Allergies Allergy Verified 02/29/20 18:54 Home Meds: Home Meds Albuterol Sulfate [Albuterol Sulfate Hfa] 2 inh INH Q4H PRN 10/06/19 [History] Doxycycline [Vibramycin] 100 mg PO BID 10/27/19 [History] glipiZIDE [Glipizide ER] 5 mg PO DAILY 10/27/19 [History] lisinopriL [Lisinopril] 2.5 mg PO DAILY 10/27/19 [History] metFORMIN HCl [Metformin HCl] 1,000 mg PO BID 10/27/19 [History] predniSONE [Prednisone] 50 mg PO DAILY 10/27/19 [History] Past Medical History HEENT History: Reports: Impaired Vision Cardiovascular History: Reports: Hypertension Respiratory History: Reports: Asthma, COPD, Other (See Below) (Tobacco dependence (cigarettes)) Gastrointestinal History: Reports: None Genitourinary History: Reports: None BLASTING HELPER History: Reports: None Musculoskeletal History: Reports: None Neurological History: Reports: None Psychiatric History: Reports: Addiction Endocrine/Metabolic History: Reports: Diabetes, Type II, Obesity/BMI 30+ Hematologic History: Reports: None Immunologic History: Reports: None Oncologic (Cancer) History: Reports: None Dermatologic History: Reports: None - Infectious Disease History Infectious Disease History: Reports: None - Past Surgical History Head Surgeries/Procedures: Reports: None <Ata Nichole - Last Filed: 02/29/20 18:58> Social & Family History - Family History Family Medical History: Noncontributory - Tobacco Use Smoking Status *Q: Current Every Day Smoker Tobacco Use Within Last Twelve Months: Cigarettes - Caffeine Use Caffeine Use: Reports: Coffee - Alcohol Use Alcohol Use History: Yes Days Per Week of Alcohol Use: 7 Number of Drinks Per Day: 10 (750mls hard alcohol daily) Total Drinks Per Week: 70 Alcohol Use Frequency: Daily - Recreational Drug Use Recreational Drug Use: No Drug Use in Last 12 Months: No - Living Situation & Occupation Living situation: Reports: , with Family Occupation: Unemployed <Ata Nichole - Last Filed: 02/29/20 18:58> ED ROS GENERAL - Review of Systems Review Of Systems: Comprehensive ROS is negative, except as noted in HPI. <Ata Nichole - Last Filed: 02/29/20 18:58> - Physical Exam Exam: See Below Exam Limited By: No Limitations General Appearance: Alert, No Apparent Distress, Obese Eye Exam: Bilateral Eye: EOMI, Normal Inspection, PERRL Ears: Normal External Exam, Hearing Grossly Normal Nose: Normal Inspection, Normal Mucosa, No Blood Throat/Mouth: Normal Lips, Normal Oropharynx, Normal Voice, No Airway Compromise, Other (poor dentition, several missing teeth) Head Exam: Atraumatic, Normocephalic Neck: Normal Inspection, Supple, Non-Tender, Full Range of Motion Respiratory/Chest: No Respiratory Distress, Lungs Clear, Normal Breath Sounds, No Accessory Muscle Use, Chest Non-Tender Cardiovascular: Normal Peripheral Pulses, Regular Rate, Rhythm, No Edema, No Gallop, No JVD, No Murmur, No Rub GI/Abdominal: Normal Bowel Sounds, Soft, No Distention, Pelvis Stable, Tender (LLQ, suprapubic, and RLQ tenderness), Hepatomegaly. No: Guarding, Rigid, Rebound (Female) Exam: Deferred Rectal (Female) Exam: Deferred Neuro Exam (Abbreviated): Alert, Oriented, CN II-XII Intact, Normal Cognition, Normal Gait, No Motor/Sensory Deficits Back Exam: Normal Inspection, Full Range of Motion Extremities: Normal Inspection, Normal Range of Motion, Non-Tender, No Pedal Edema Psychiatric: Normal Affect, Normal Mood Skin Exam: Warm, Dry, Intact, Normal Color <Ata Nichole - Last Filed: 02/29/20 18:58> Course <Ata Nichole - Last Filed: 02/29/20 18:58> - Vital Signs Last Recorded V/S: Last Vital Signs Temp 36.2 C 02/29/20 15:53 Pulse 110 H 02/29/20 15:53 Resp 24 H 02/29/20 15:53 BP 125/69 02/29/20 15:53 Pulse Ox 92 L 02/29/20 15:53 - Orders/Labs/Meds Orders: Active Orders 24 hr Category Date Time Status Blood Glucose Check, Bedside [] ONETIME Care 02/29/20 15:57 Active Blood Glucose Check, Bedside [] ONETIME Care 02/29/20 18:47 Active Peripheral IV Care [RC] . DIRECTED Care 02/29/20 15:58 Active Sodium Chloride 0.9% [Saline Flush] Med 02/29/20 15:57 Active 10 ml FLUSH ASDIRECTED PRN Peripheral IV Insertion Adult [OM.PC] Stat Oth 02/29/20 15:57 Ordered Seizure Precautions [OM.PC] Routine Oth 02/29/20 16:10 Ordered Medication Orders Sodium Chloride (Saline Flush) 10 ml FLUSH ASDIRECTED PRN PRN Reason: Keep Vein Open Last Admin: 02/29/20 16:50 Dose: 10 ml Documented by: GEE Labs: Laboratory Tests 02/29/20 02/29/20 02/29/20 Range/Units 16:14 16:14 16:14 WBC 11.2 H (5.0-10.0) 10^3/uL RBC 4.08 L (4.2-5.4) 10^6/uL Hgb 14.3 (12.0-16.0) g/dL Hct 41.6 (37.0-47.0) % MCV 102.0 H D (80-100) fL MCH 35.0 H (27.0-34.0) pg MCHC 34.4 (33.0-35.0) g/dL Plt Count 134 L (150-450) 10^3/uL Neut % (Auto) 70.6 (42.2-75.2) % Lymph % (Auto) 22.0 (20.5-50.1) % Bates % (Auto) 4.4 (2-8) % Eos % (Auto) 2.4 (1.0-3.0) % Baso % (Auto) 0.6 (0.0-1.0) % Add Manual Diff Yes Neutrophils % (Manual) 66 (42-75) % Band Neutrophils % 5 % Lymphocytes % (Manual) 23 (20-50) % Monocytes % (Manual) 4 (2-8) % Eosinophils % (Manual) 2 (1-3) % Platelet Estimate Decreased Basophilic Stippling 1+ slight Macrocytosis 2+ moderate Stomatocytes 2+ moderate PT 9.6 (9.0-12.0) SEC INR 1.0 (0.9-1.2) APTT 19.7 L (22.0-34.0) SEC Sodium 133 L (136-145) mmol/L Potassium 3.4 L (3.5-5.1) mmol/L Chloride 93 L (98-107) mmol/L Carbon Dioxide 22 (21-32) mmol/L Anion Gap 21.4 H (7-13) mEq/L BUN 5 L (7-18) mg/dL Creatinine 0.78 (0.55-1.02) mg/dL Est Cr Clr Drug Dosing TNP Estimated GFR (MDRD) > 60 BUN/Creatinine Ratio 6.4 (No establ ref range) Glucose 479 H* (74-99) mg/dL Calcium 8.7 (8.5-10.1) mg/dL Total Bilirubin 0.9 (0.2-1.0) mg/dL AST 89 H (15-37) U/L ALT 52 (14-59) U/L Alkaline Phosphatase 172 H (46-116) U/L Lactate Dehydrogenase 201 (81-234) U/L Creatine Kinase 47 (16-191) U/L C-Reactive Protein 2.7 H (0.0-0.9) mg/dL Total Protein 6.8 (6.4-8.2) g/dL Albumin 3.1 L (3.4-5.0) g/dL Globulin 3.7 Albumin/Globulin Ratio 0.84 Urine Color (YELLOW) Urine Appearance (CLEAR) Urine pH (5.0-9.0) Ur Specific [place] (1.005-1.030) Urine Protein (NEGATIVE) Urine Glucose (UA) (NEGATIVE) Urine Ketones (NEGATIVE) Urine Occult Blood (NEGATIVE) Urine Nitrite (NEGATIVE) Urine Bilirubin (NEGATIVE) Urine Urobilinogen (0.2-1.0) mg/dL Ur Leukocyte Esterase (NEGATIVE) Urine RBC /HPF Urine WBC (0-5/HPF) /HPF Ur Epithelial Cells (NOT SEEN) /HPF Urine Bacteria (0-FEW/HPF) /HPF Urine HCG, Qual Urine Opiates Screen (NEGATIVE) Ur Oxycodone Screen (NEGATIVE) Urine Methadone Screen (NEGATIVE) Ur Barbiturates Screen (NEGATIVE) U Tricyclic Antidepress (NEGATIVE) Ur Phencyclidine Scrn (NEGATIVE) Ur Amphetamine Screen (NEGATIVE) U Methamphetamines Scrn (NEGATIVE) Urine MDMA Screen (NEGATIVE) U Benzodiazepines Scrn (NEGATIVE) Urine Cocaine Screen (NEGATIVE) U Marijuana (THC) Screen (NEGATIVE) Ethyl Alcohol 198 (0) mg/dL Ketones 02/29/20 02/29/20 02/29/20 Range/Units 16:14 17:21 17:21 WBC (5.0-10.0) 10^3/uL RBC (4.2-5.4) 10^6/uL Hgb (12.0-16.0) g/dL Hct (37.0-47.0) % MCV (80-100) fL MCH (27.0-34.0) pg MCHC (33.0-35.0) g/dL Plt Count (150-450) 10^3/uL Neut % (Auto) (42.2-75.2) % Lymph % (Auto) (20.5-50.1) % Bates % (Auto) (2-8) % Eos % (Auto) (1.0-3.0) % Baso % (Auto) (0.0-1.0) % Add Manual Diff Neutrophils % (Manual) (42-75) % Band Neutrophils % % Lymphocytes % (Manual) (20-50) % Monocytes % (Manual) (2-8) % Eosinophils % (Manual) (1-3) % Platelet Estimate Basophilic Stippling Macrocytosis Stomatocytes PT (9.0-12.0) SEC INR (0.9-1.2) APTT (22.0-34.0) SEC Sodium (136-145) mmol/L Potassium (3.5-5.1) mmol/L Chloride (98-107) mmol/L Carbon Dioxide (21-32) mmol/L Anion Gap (7-13) mEq/L BUN (7-18) mg/dL Creatinine (0.55-1.02) mg/dL Est Cr Clr Drug Dosing Estimated GFR (MDRD) BUN/Creatinine Ratio (No establ ref range) Glucose (74-99) mg/dL Calcium (8.5-10.1) mg/dL Total Bilirubin (0.2-1.0) mg/dL AST (15-37) U/L ALT (14-59) U/L Alkaline Phosphatase (46-116) U/L Lactate Dehydrogenase (81-234) U/L Creatine Kinase (16-191) U/L C-Reactive Protein (0.0-0.9) mg/dL Total Protein (6.4-8.2) g/dL Albumin (3.4-5.0) g/dL Globulin Albumin/Globulin Ratio Urine Color Yellow (YELLOW) Urine Appearance Clear (CLEAR) Urine pH 6.5 (5.0-9.0) Ur Specific [place] 1.010 (1.005-1.030) Urine Protein Negative (NEGATIVE) Urine Glucose (UA) 500 H (NEGATIVE) Urine Ketones 15 H (NEGATIVE) Urine Occult Blood Trace-intact H (NEGATIVE) Urine Nitrite Negative (NEGATIVE) Urine Bilirubin Negative (NEGATIVE) Urine Urobilinogen 2.0 H (0.2-1.0) mg/dL Ur Leukocyte Esterase Negative (NEGATIVE) Urine RBC 0-5 /HPF Urine WBC 0-5 (0-5/HPF) /HPF Ur Epithelial Cells Few (NOT SEEN) /HPF Urine Bacteria Few (0-FEW/HPF) /HPF Urine HCG, Qual Negative Urine Opiates Screen (NEGATIVE) Ur Oxycodone Screen (NEGATIVE) Urine Methadone Screen (NEGATIVE) Ur Barbiturates Screen (NEGATIVE) U Tricyclic Antidepress (NEGATIVE) Ur Phencyclidine Scrn (NEGATIVE) Ur Amphetamine Screen (NEGATIVE) U Methamphetamines Scrn (NEGATIVE) Urine MDMA Screen (NEGATIVE) U Benzodiazepines Scrn (NEGATIVE) Urine Cocaine Screen (NEGATIVE) U Marijuana (THC) Screen (NEGATIVE) Ethyl Alcohol (0) mg/dL Ketones Negative 02/29/20 Range/Units 17:21 WBC (5.0-10.0) 10^3/uL RBC (4.2-5.4) 10^6/uL Hgb (12.0-16.0) g/dL Hct (37.0-47.0) % MCV (80-100) fL MCH (27.0-34.0) pg MCHC (33.0-35.0) g/dL Plt Count (150-450) 10^3/uL Neut % (Auto) (42.2-75.2) % Lymph % (Auto) (20.5-50.1) % Bates % (Auto) (2-8) % Eos % (Auto) (1.0-3.0) % Baso % (Auto) (0.0-1.0) % Add Manual Diff Neutrophils % (Manual) (42-75) % Band Neutrophils % % Lymphocytes % (Manual) (20-50) % Monocytes % (Manual) (2-8) % Eosinophils % (Manual) (1-3) % Platelet Estimate Basophilic Stippling Macrocytosis Stomatocytes PT (9.0-12.0) SEC INR (0.9-1.2) APTT (22.0-34.0) SEC Sodium (136-145) mmol/L Potassium (3.5-5.1) mmol/L Chloride (98-107) mmol/L Carbon Dioxide (21-32) mmol/L Anion Gap (7-13) mEq/L BUN (7-18) mg/dL Creatinine (0.55-1.02) mg/dL Est Cr Clr Drug Dosing Estimated GFR (MDRD) BUN/Creatinine Ratio (No establ ref range) Glucose (74-99) mg/dL Calcium (8.5-10.1) mg/dL Total Bilirubin (0.2-1.0) mg/dL AST (15-37) U/L ALT (14-59) U/L Alkaline Phosphatase (46-116) U/L Lactate Dehydrogenase (81-234) U/L Creatine Kinase (16-191) U/L C-Reactive Protein (0.0-0.9) mg/dL Total Protein (6.4-8.2) g/dL Albumin (3.4-5.0) g/dL Globulin Albumin/Globulin Ratio Urine Color (YELLOW) Urine Appearance (CLEAR) Urine pH (5.0-9.0) Ur Specific [place] (1.005-1.030) Urine Protein (NEGATIVE) Urine Glucose (UA) (NEGATIVE) Urine Ketones (NEGATIVE) Urine Occult Blood (NEGATIVE) Urine Nitrite (NEGATIVE) Urine Bilirubin (NEGATIVE) Urine Urobilinogen (0.2-1.0) mg/dL Ur Leukocyte Esterase (NEGATIVE) Urine RBC /HPF Urine WBC (0-5/HPF) /HPF Ur Epithelial Cells (NOT SEEN) /HPF Urine Bacteria (0-FEW/HPF) /HPF Urine HCG, Qual Urine Opiates Screen Negative (NEGATIVE) Ur Oxycodone Screen Negative (NEGATIVE) Urine Methadone Screen Negative (NEGATIVE) Ur Barbiturates Screen Negative (NEGATIVE) U Tricyclic Antidepress Negative (NEGATIVE) Ur Phencyclidine Scrn Negative (NEGATIVE) Ur Amphetamine Screen Negative (NEGATIVE) U Methamphetamines Scrn Negative (NEGATIVE) Urine MDMA Screen Negative (NEGATIVE) U Benzodiazepines Scrn Negative (NEGATIVE) Urine Cocaine Screen Negative (NEGATIVE) U Marijuana (THC) Screen Negative (NEGATIVE) Ethyl Alcohol (0) mg/dL Ketones Meds: Medications Generic Name Dose Route Start Last Admin Trade Name Freq PRN Reason Stop Dose Admin Sodium Chloride 10 ml 02/29/20 15:57 02/29/20 16:50 Saline Flush FLUSH 10 ml ASDIRECTED PRN Administration Keep Vein Open Discontinued Medications Generic Name Dose Route Start Last Admin Trade Name Freq PRN Reason Stop Dose Admin Diazepam 10 mg 02/29/20 15:55 Valium IVPUSH 02/29/20 15:56 ONETIME ONE Hydromorphone HCl 0.5 mg 02/29/20 16:40 02/29/20 16:50 Dilaudid IVPUSH 02/29/20 16:41 0.5 mg ONETIME ONE Administration Hydromorphone HCl 1 mg 02/29/20 17:26 02/29/20 17:34 Dilaudid IVPUSH 02/29/20 17:27 1 mg ONETIME ONE Administration Levetiracetam 500 mg/ Premix 0 mls @ 0 mls/hr 02/29/20 15:56 02/29/20 16:14 IV 02/29/20 15:57 999 mls/hr ONETIME ONE Administration Multivitamins/Minerals 10 ml/ 1,011.2 mls @ 999 mls/hr 02/29/20 16:11 02/29/20 16:50 Folic Acid 1 mg/ Thiamine HCl IV 02/29/20 17:11 999 mls/hr 100 mg/ Lactated Ringer's ONETIME ONE Administration Insulin Human Regular 10 unit 02/29/20 17:38 Humulin R SUBCUT 02/29/20 17:39 ONETIME ONE Iopamidol 100 ml 02/29/20 17:10 02/29/20 18:27 Isovue-300 (61%) IVPUSH 02/29/20 17:11 100 ml ONETIME ONE Administration Ondansetron HCl 4 mg 02/29/20 16:40 02/29/20 16:50 Zofran IV 02/29/20 16:41 4 mg ONETIME ONE Administration Ondansetron HCl 4 mg 02/29/20 17:26 02/29/20 17:34 Zofran IV 02/29/20 17:27 4 mg ONETIME ONE Administration - Radiology Interpretation Free Text/Narrative:: [facility] Final Radiology Report Call: [phone] assistance Online chat: [email or web address] Name: THU RAPHAEL Age: 50Years F Date: 02/29/2020 SSN: -- : [id number] Study: CT HEAD WO CONT Requesting Physician: ATA NICHOLE: [id number] Images: [id number] Addl Studies: Provided Clinical History: Recurrent seizures, new onset Contrast: Without Contrast Medium: Contrast Amount: Contrast Method: Page 1 of 2 PROCEDURE INFORMATION: Exam: CT Head Without Contrast Exam date and time: 02/29/2020 6:19 PM Age: 50 years old Clinical indication: Pain; Other: Recurrent seizures; Additional info: Recurrent seizures, new onset TECHNIQUE: Imaging protocol: Computed tomography of the head without contrast. Radiation optimization: All CT scans at this facility use at least one of these dose optimization techniques: automated exposure control; mA and/or kV adjustment per patient size (includes targeted exams where dose is matched to clinical indication); or iterative reconstruction. COMPARISON: CT Head wo Cont 07/01/2019 2:23 PM FINDINGS: Brain: Normal. No hemorrhage. Unremarkable white matter. No mass effect. Ventricles: Normal. No ventriculomegaly. Bones/joints: Unremarkable. No acute fracture. Sinuses: Visualized sinuses are unremarkable. No fluid levels. Mastoid air cells: Visualized mastoid air cells are well aerated. Orbits: Unremarkable. Soft tissues: Unremarkable. IMPRESSION: No acute intracranial abnormality. Thank you for allowing us to participate in the care of your patient. Dictated and Authenticated by: Jon North MD [facility] | Final Radiology Report CONFIDENTIALITY STATEMENT This report is intended only for use by the referring physician, and only in accordance with law. If you received this in error, call [phone]. Page 2 of 2 02/29/2020 6:52 PM Central Time ([place] & [place]) (Ata Nichole) - Re-Assessments/Exams Free Text/Narrative Re-Assessment/Exam: 02/29/20 18:58 Care of pt transferred to Chai VICENTE at shift change. (Ata Nichole) Departure <Ata Nichole - Last Filed: 02/29/20 18:58> - Departure Time of Disposition: 19:10 Condition: Fair - Discharge Information *PRESCRIPTION DRUG MONITORING PROGRAM REVIEWED*: Not Applicable *COPY OF PRESCRIPTION DRUG MONITORING REPORT IN PATIENT HELENE: Not Applicable <Chai Lutz - Last Filed: 02/29/20 19:14> - Departure Disposition: Home, Self-Care 01 Clinical Impression: Seizure, Gastroenteritis Alcohol intoxication Qualifiers: Complication of substance-induced condition: uncomplicated Qualified Code(s): F10.920 - Alcohol use, unspecified with intoxication, uncomplicated - Discharge Information Instructions: Seizure, Adult, [id number] Referrals: PCP,None [Primary Care Provider] - Forms: ED Department Discharge Care Plan Goals: The patient was advised of the examination, lab and CT results during the visit. The patient was given a dose of Keppra while in the ED and discharged with a script for Keppra (500 mg) #20 to take 1 by mouth 2 times per day for 10 days. The patient should follow-up with her primary care facility and neurology for continued evaluation and management. The patient should stick to a BRAT diet over the next 2-3 days with small frequent sips of fluid. If the patient has any additional symptoms or concerns, the patient should either return to the emergency department or visit her primary care facility. Sepsis Event Note (ED) - Focused Exam Vital Signs: Vital Signs Temp Pulse Resp BP Pulse Ox 02/29/20 15:53 36.2 C 110 H 24 H 125/69 92 L"
[2020-02-29] MEDS ORDERED: NACL IV ONE ×2 (15:56)
[2020-02-29] MEDS ORDERED: LEVETIRACETAM IV ONE ×2 (15:56)
[2020-02-29] MEDS ORDERED: Sodium Chloride 0.9% 10 ML Syringe FLUSH PRN (15:57)
[2020-02-29] MEDS ORDERED: MVI, Adult with Vitamin K 10 ML, Folic Acid 1 MG, Thiamine 100 MG in Lactated Ringers 1... IV ONE ×4 (16:11)
[2020-02-29] MEDS ORDERED: HYDROmorphone 0.5 MG/0.5 ML Syringe IVPUSH ONE (16:40)
[2020-02-29] MEDS ORDERED: Ondansetron 4 MG/2 ML SDV IV ONE ×2 (16:40→17:26)
[2020-02-29 17:01] LABS: PTT,PARTIAL THROMBOPLSTIN TIME 19.7 SEC (22.0-34.0)
[2020-02-29 17:03] LABS: ANION GAP 21.4 mEq/L (7-13); CHLORIDE,CL 93 mmol/L (98-107); SODIUM,NA 133 mmol/L (136-145)
[2020-02-29] MEDS ORDERED: Iopamidol 612 MG/ML 100 ML Bottle IVPUSH ONE (17:10)
[2020-02-29] MEDS ORDERED: HYDROmorphone 1 MG/ML Syringe IVPUSH ONE (17:26)
[2020-02-29] MEDS ORDERED: Insulin Regular, Human 100 Units/ML 3 ML Vial SUBCUT ONE (17:38)
--- NOTE | 2020-02-29 18:52 | CT ---
PROCEDURE INFORMATION: Exam: CT Head Without Contrast Exam date and time: 02/29/2020 6:19 PM Age: 50 years old Clinical indication: Pain; Other: Recurrent seizures; Additional info: Recurrent seizures, new onset TECHNIQUE: Imaging protocol: Computed tomography of the head without contrast. Radiation optimization: All CT scans at this facility use at least one of these dose optimization techniques: automated exposure control; mA and/or kV adjustment per patient size (includes targeted exams where dose is matched to clinical indication); or iterative reconstruction. COMPARISON: CT Head wo Cont 07/01/2019 2:23 PM FINDINGS: Brain: Normal. No hemorrhage. Unremarkable white matter. No mass effect. Ventricles: Normal. No ventriculomegaly. Bones/joints: Unremarkable. No acute fracture. Sinuses: Visualized sinuses are unremarkable. No fluid levels. Mastoid air cells: Visualized mastoid air cells are well aerated. Orbits: Unremarkable. Soft tissues: Unremarkable. IMPRESSION: No acute intracranial abnormality.
--- NOTE | 2020-02-29 19:00 | CT ---
PROCEDURE INFORMATION: Exam: CT Abdomen And Pelvis With Contrast Exam date and time: 02/29/2020 6:19 PM Age: 50 years old Clinical indication: Abdominal pain; Generalized; Prior surgery; Additional info: Severe lower abdominal pain TECHNIQUE: Imaging protocol: Computed tomography of the abdomen and pelvis with intravenous contrast. Radiation optimization: All CT scans at this facility use at least one of these dose optimization techniques: automated exposure control; mA and/or kV adjustment per patient size (includes targeted exams where dose is matched to clinical indication); or iterative reconstruction. Contrast material: [id number]; Contrast volume: 100 ml; Contrast route: INTRAVENOUS (IV); COMPARISON: No relevant prior studies available. FINDINGS: Lungs: The visualized portions of the lung bases are normal. Heart: The cardiac structures are normal. Liver: There is diffuse hypodensity of the liver compatible with moderate steatosis.The pancreas is normal. Gallbladder and bile ducts: The gallbladder is normal. Pancreas: Normal. No ductal dilation. Spleen: Normal. No splenomegaly. Adrenals: The adrenal glands are normal. Kidneys and ureters: The kidneys are normal. Stomach and bowel: The stomach is normal. There is mucosal thickening of the cecum, proximal ascending colon and mucosa of the terminal ileum. There is a normal air-filled appendix. There diverticulosis of the distal descending and sigmoid colon. There is no evidence of diverticulitis. Appendix: Normal air-filled appendix. Intraperitoneal space: There is no free air or ascites. Vasculature: Left coronary artery calcifications. The aorta is normal. Lymph nodes: Unremarkable. No enlarged lymph nodes. Bladder: The bladder is normal. Reproductive: Unremarkable as visualized. Bones/joints: There is severe degenerative disease of the lumbosacral junction. Soft tissues: Unremarkable. IMPRESSION: 1. Moderate hepatic steatosis. 2. Colitis or inflammatory bowel changes of the cecum, ascending colon and terminal ileum. 3. Distal descending and sigmoid colon diverticulosis. 4. L5-S1 severe degenerative disc disease.
== END 2020-02-29 19:25 | disposition home or self-care (01) ==
LOC: DL.ED 15:53
DX: R56.9 Unspecified convulsions (principal); K52.9 Noninfective gastroenteritis and colitis, unspecified; F10.120 Alcohol abuse with intoxication, uncomplicated; F17.210 Nicotine dependence, cigarettes, uncomplicated; I10 Essential (primary) hypertension; E11.9 Type 2 diabetes mellitus without complications; E66.9 Obesity, unspecified; J44.9 Chronic obstructive pulmonary disease, unspecified; Y90.6 Blood alcohol level of 120-199 mg/100 ml; Z79.899 Other long term (current) drug therapy
CPT/HCPCS: 36415; 70450; 74177; 80053; 80305; 80307; 81001; 81025; 82009; 82550; 82962; 83615; 85025; 85610; 85730; 86140; 96365; 96366; 96368; 96375; 96376; 99285; J1170; J1953; J2405; J3411; J7120; Q9967; 99284; J3490

== ENCOUNTER 2020-04-24 07:33 | Emergency (ER) | payer SELFPAY ==
--- NOTE | 2020-04-24 08:08 | EDM.PDOC ---
ED HPI GENERAL MEDICAL PROBLEM - General Chief Complaint: Gastrointestinal Problem Stated Complaint: DIARREHEA STOMACHE PAIN WEAKNESS Time Seen by Provider: 04/24/20 08:05 Source of Information: Reports: Patient, RN, RN Notes Reviewed History Limitations: Reports: No Limitations - History of Present Illness INITIAL COMMENTS - FREE TEXT/NARRATIVE: Patient presents to the ED via personal vehicle with complaints of diffuse abdominal pain, nausea, and diarrhea. Per patient report, the abdominal pain began about one week ago; the diarrhea and nausea began three days ago. The pa manjula states she has had about 6 loose, watery stools each day. She has not taken any medications for these symptoms. She does attest to dysuria and hematuria, she relates she has not been voiding as often, "..because it hurts." She states she does experience cough with thick secretions as she has a history of COPD. She denies fever, shaking chills, vomiting, hematochezia, or melena. The patient relates she drink about one pint of vodka each day over the past year, since her husbands . She denies illicit recreational drug use. She states she has no recent changes to her diet, but has not eaten "..for the past week." Lower Abdominal Pain Score (Numeric/FACES): 10 - Related Data Allergies Allergy/AdvReac Type Severity Reaction Status Date / Time No Known Allergies Allergy Verified 04/24/20 07:51 Home Meds: Home Meds Albuterol Sulfate [Albuterol Sulfate Hfa] 2 inh INH Q4H PRN 10/06/19 [History] Doxycycline [Vibramycin] 100 mg PO BID 10/27/19 [History] glipiZIDE [Glipizide ER] 5 mg PO DAILY 10/27/19 [History] lisinopriL [Lisinopril] 2.5 mg PO DAILY 10/27/19 [History] metFORMIN HCl [Metformin HCl] 1,000 mg PO BID 10/27/19 [History] predniSONE [Prednisone] 50 mg PO DAILY 10/27/19 [History] Past Medical History HEENT History: Reports: Impaired Vision Cardiovascular History: Reports: Hypertension Respiratory History: Reports: Asthma, COPD, Other (See Below) Gastrointestinal History: Reports: None Genitourinary History: Reports: None [employer] History: Reports: None Musculoskeletal History: Reports: None Neurological History: Reports: None Psychiatric History: Reports: Addiction Endocrine/Metabolic History: Reports: Diabetes, Type II, Obesity/BMI 30+ Hematologic History: Reports: None Immunologic History: Reports: None Oncologic (Cancer) History: Reports: None Dermatologic History: Reports: None - Infectious Disease History Infectious Disease History: Reports: Chicken Pox - Past Surgical History Head Surgeries/Procedures: Reports: None Social & Family History - Family History Family Medical History: Noncontributory - Tobacco Use Tobacco Use Status *Q: Current Every Day Tobacco User Years of Tobacco use: 20 Packs/Tins Daily: 0.5 Second Hand Smoke Exposure: No - Caffeine Use Caffeine Use: Reports: None - Recreational Drug Use Recreational Drug Use: No - Living Situation & Occupation Living situation: Reports: , with Family Occupation: Unemployed ED ROS GENERAL - Review of Systems Review Of Systems: Comprehensive ROS is negative, except as noted in HPI. ED EXAM, GI/ABD - Physical Exam Exam: See Below Exam Limited By: No Limitations General Appearance: Alert, WD/WN, No Apparent Distress Eyes: Bilateral: Normal Appearance, EOMI Throat/Mouth: Normal Voice, No Airway Compromise Respiratory/Chest: No Accessory Muscle Use, Chest Non-Tender, Wheezing (To anteriot upper lobes). No: Crackles, Rales, Rhonchi, Stridor Cardiovascular: Normal Peripheral Pulses, Regular Rate, Rhythm, No Edema, No Gallop, No JVD, No Murmur, No Rub GI/Abdominal Exam: Soft, No Distention, No Mass, Pelvis Stable, Tender (Diffuse tenderness to palpation of all quadrants), Abnormal Bowel Sounds (Hypoactive bowel sounds) (Female) Exam: Deferred Rectal (Female) Exam: Deferred Back Exam: Full Range of Motion, CVA Tenderness (R). No: CVA Tenderness (L) Extremities: Normal Inspection, Non-Tender, No Pedal Edema, Normal Capillary Refill Neurological: Alert, Oriented, CN II-XII Intact Skin Exam: Warm, Dry, Pallor. No: Ecchymosis, Erythema, Mottled, Petechiae, Rash Course - Vital Signs Last Recorded V/S: Last Vital Signs Temp 96.7 F L 04/24/20 07:44 Pulse 109 H 04/24/20 10:02 Resp 20 04/24/20 10:02 BP 128/86 04/24/20 10:02 Pulse Ox 96 04/24/20 10:02 - Orders/Labs/Meds Orders: Active Orders 24 hr Category Date Time Status Peripheral IV Care [RC] . DIRECTED Care 04/24/20 08:04 Active CULTURE BLOOD [BC] Stat Lab 04/24/20 08:29 Received CULTURE URINE [RM] Stat Lab 04/24/20 10:47 Received Sodium Chloride 0.9% [Saline Flush] Med 04/24/20 08:03 Active 10 ml FLUSH ASDIRECTED PRN Blood Culture x2 Reflex Set [OM.PC] Stat Oth 04/24/20 08:02 Ordered Peripheral IV Insertion Adult [OM.PC] Stat Oth 04/24/20 08:02 Ordered Medication Orders Sodium Chloride (Saline Flush) 10 ml FLUSH ASDIRECTED PRN PRN Reason: Keep Vein Open Last Admin: 04/24/20 10:44 Dose: 10 ml Documented by: Admin: 04/24/20 10:01 Dose: 10 ml Documented by: AYESHA Labs: Laboratory Tests 04/24/20 04/24/20 04/24/20 Range/Units 08:26 08:29 08:29 WBC 21.1 H (5.0-10.0) 10^3/uL RBC 2.79 L (4.2-5.4) 10^6/uL Hgb 10.0 L D (12.0-16.0) g/dL Hct 29.1 L (37.0-47.0) % MCV 104.3 H (80-100) fL MCH 35.8 H (27.0-34.0) pg MCHC 34.4 (33.0-35.0) g/dL Plt Count 275 D (150-450) 10^3/uL Neut % (Auto) 85.1 H (42.2-75.2) % Lymph % (Auto) 8.4 L (20.5-50.1) % Ransom % (Auto) 6.1 (2-8) % Eos % (Auto) 0.2 L (1.0-3.0) % Baso % (Auto) 0.2 (0.0-1.0) % Add Manual Diff Yes Neutrophils % (Manual) 75 (42-75) % Band Neutrophils % 4 % Lymphocytes % (Manual) 13 L (20-50) % Monocytes % (Manual) 8 (2-8) % Sodium 124 L (136-145) mmol/L Potassium 3.0 L (3.5-5.1) mmol/L Chloride 84 L (98-107) mmol/L Carbon Dioxide 28 (21-32) mmol/L Anion Gap 15.0 H (7-13) mEq/L BUN 7 (7-18) mg/dL Creatinine 0.63 (0.55-1.02) mg/dL Est Cr Clr Drug Dosing 98.27 mL/min Estimated GFR (MDRD) > 60 BUN/Creatinine Ratio 11.1 (No establ ref range) Glucose 301 H (74-99) mg/dL Lactic Acid (0.4-2.0) mmol/L Calcium 7.7 L (8.5-10.1) mg/dL Phosphorus 2.2 L (2.6-4.7) mg/dL Magnesium 1.6 L (1.8-2.4) mg/dL Total Bilirubin 2.9 H (0.2-1.0) mg/dL AST 58 H (15-37) U/L ALT 16 (14-59) U/L Alkaline Phosphatase 248 H (46-116) U/L C-Reactive Protein 12.1 H (0.0-0.9) mg/dL Total Protein 6.2 L (6.4-8.2) g/dL Albumin 1.9 L (3.4-5.0) g/dL Globulin 4.3 Albumin/Globulin Ratio 0.44 HCG, Qual Urine Color (YELLOW) Urine Appearance (CLEAR) Urine pH (5.0-9.0) Ur Specific [place] (1.005-1.030) Urine Protein (NEGATIVE) Urine Glucose (UA) (NEGATIVE) Urine Ketones (NEGATIVE) Urine Occult Blood (NEGATIVE) Urine Nitrite (NEGATIVE) Urine Bilirubin (NEGATIVE) Urine Urobilinogen (0.2-1.0) mg/dL Ur Leukocyte Esterase (NEGATIVE) Urine RBC /HPF Urine WBC (0-5/HPF) /HPF Ur Epithelial Cells (NOT SEEN) /HPF Amorphous Sediment (NOT SEEN) /HPF Urine Bacteria (0-FEW/HPF) /HPF Urine Mucus (NOT SEEN) /LPF Urine Opiates Screen (NEGATIVE) Ur Oxycodone Screen (NEGATIVE) Urine Methadone Screen (NEGATIVE) Ur Barbiturates Screen (NEGATIVE) U Tricyclic Antidepress (NEGATIVE) Ur Phencyclidine Scrn (NEGATIVE) Ur Amphetamine Screen (NEGATIVE) U Methamphetamines Scrn (NEGATIVE) Urine MDMA Screen (NEGATIVE) U Benzodiazepines Scrn (NEGATIVE) Urine Cocaine Screen (NEGATIVE) U Marijuana (THC) Screen (NEGATIVE) Ethyl Alcohol 18 (0) mg/dL SARS CoV-2 RNA Rapid YESI Negative (NEGATIVE) 04/24/20 04/24/20 04/24/20 Range/Units 08:29 08:29 10:47 WBC (5.0-10.0) 10^3/uL RBC (4.2-5.4) 10^6/uL Hgb (12.0-16.0) g/dL Hct (37.0-47.0) % MCV (80-100) fL MCH (27.0-34.0) pg MCHC (33.0-35.0) g/dL Plt Count (150-450) 10^3/uL Neut % (Auto) (42.2-75.2) % Lymph % (Auto) (20.5-50.1) % Ransom % (Auto) (2-8) % Eos % (Auto) (1.0-3.0) % Baso % (Auto) (0.0-1.0) % Add Manual Diff Neutrophils % (Manual) (42-75) % Band Neutrophils % % Lymphocytes % (Manual) (20-50) % Monocytes % (Manual) (2-8) % Sodium (136-145) mmol/L Potassium (3.5-5.1) mmol/L Chloride (98-107) mmol/L Carbon Dioxide (21-32) mmol/L Anion Gap (7-13) mEq/L BUN (7-18) mg/dL Creatinine (0.55-1.02) mg/dL Est Cr Clr Drug Dosing mL/min Estimated GFR (MDRD) BUN/Creatinine Ratio (No establ ref range) Glucose (74-99) mg/dL Lactic Acid 5.9 H* (0.4-2.0) mmol/L Calcium (8.5-10.1) mg/dL Phosphorus (2.6-4.7) mg/dL Magnesium (1.8-2.4) mg/dL Total Bilirubin (0.2-1.0) mg/dL AST (15-37) U/L ALT (14-59) U/L Alkaline Phosphatase (46-116) U/L C-Reactive Protein (0.0-0.9) mg/dL Total Protein (6.4-8.2) g/dL Albumin (3.4-5.0) g/dL Globulin Albumin/Globulin Ratio HCG, Qual Negative Urine Color Dark yellow (YELLOW) Urine Appearance Turbid (CLEAR) Urine pH 5.5 (5.0-9.0) Ur Specific [place] 1.025 (1.005-1.030) Urine Protein 100 H (NEGATIVE) Urine Glucose (UA) 250 H (NEGATIVE) Urine Ketones 15 H (NEGATIVE) Urine Occult Blood Large H (NEGATIVE) Urine Nitrite Positive H (NEGATIVE) Urine Bilirubin Large H (NEGATIVE) Urine Urobilinogen >=8.0 H (0.2-1.0) mg/dL Ur Leukocyte Esterase Large H (NEGATIVE) Urine RBC 40-50 H /HPF Urine WBC 50-75 H (0-5/HPF) /HPF Ur Epithelial Cells Few (NOT SEEN) /HPF Amorphous Sediment Many H (NOT SEEN) /HPF Urine Bacteria Many H (0-FEW/HPF) /HPF Urine Mucus Moderate H (NOT SEEN) /LPF Urine Opiates Screen (NEGATIVE) Ur Oxycodone Screen (NEGATIVE) Urine Methadone Screen (NEGATIVE) Ur Barbiturates Screen (NEGATIVE) U Tricyclic Antidepress (NEGATIVE) Ur Phencyclidine Scrn (NEGATIVE) Ur Amphetamine Screen (NEGATIVE) U Methamphetamines Scrn (NEGATIVE) Urine MDMA Screen (NEGATIVE) U Benzodiazepines Scrn (NEGATIVE) Urine Cocaine Screen (NEGATIVE) U Marijuana (THC) Screen (NEGATIVE) Ethyl Alcohol (0) mg/dL SARS CoV-2 RNA Rapid YESI (NEGATIVE) 04/24/20 Range/Units 10:47 WBC (5.0-10.0) 10^3/uL RBC (4.2-5.4) 10^6/uL Hgb (12.0-16.0) g/dL Hct (37.0-47.0) % MCV (80-100) fL MCH (27.0-34.0) pg MCHC (33.0-35.0) g/dL Plt Count (150-450) 10^3/uL Neut % (Auto) (42.2-75.2) % Lymph % (Auto) (20.5-50.1) % Ransom % (Auto) (2-8) % Eos % (Auto) (1.0-3.0) % Baso % (Auto) (0.0-1.0) % Add Manual Diff Neutrophils % (Manual) (42-75) % Band Neutrophils % % Lymphocytes % (Manual) (20-50) % Monocytes % (Manual) (2-8) % Sodium (136-145) mmol/L Potassium (3.5-5.1) mmol/L Chloride (98-107) mmol/L Carbon Dioxide (21-32) mmol/L Anion Gap (7-13) mEq/L BUN (7-18) mg/dL Creatinine (0.55-1.02) mg/dL Est Cr Clr Drug Dosing mL/min Estimated GFR (MDRD) BUN/Creatinine Ratio (No establ ref range) Glucose (74-99) mg/dL Lactic Acid (0.4-2.0) mmol/L Calcium (8.5-10.1) mg/dL Phosphorus (2.6-4.7) mg/dL Magnesium (1.8-2.4) mg/dL Total Bilirubin (0.2-1.0) mg/dL AST (15-37) U/L ALT (14-59) U/L Alkaline Phosphatase (46-116) U/L C-Reactive Protein (0.0-0.9) mg/dL Total Protein (6.4-8.2) g/dL Albumin (3.4-5.0) g/dL Globulin Albumin/Globulin Ratio HCG, Qual Urine Color (YELLOW) Urine Appearance (CLEAR) Urine pH (5.0-9.0) Ur Specific [place] (1.005-1.030) Urine Protein (NEGATIVE) Urine Glucose (UA) (NEGATIVE) Urine Ketones (NEGATIVE) Urine Occult Blood (NEGATIVE) Urine Nitrite (NEGATIVE) Urine Bilirubin (NEGATIVE) Urine Urobilinogen (0.2-1.0) mg/dL Ur Leukocyte Esterase (NEGATIVE) Urine RBC /HPF Urine WBC (0-5/HPF) /HPF Ur Epithelial Cells (NOT SEEN) /HPF Amorphous Sediment (NOT SEEN) /HPF Urine Bacteria (0-FEW/HPF) /HPF Urine Mucus (NOT SEEN) /LPF Urine Opiates Screen Negative (NEGATIVE) Ur Oxycodone Screen Negative (NEGATIVE) Urine Methadone Screen Negative (NEGATIVE) Ur Barbiturates Screen Negative (NEGATIVE) U Tricyclic Antidepress Negative (NEGATIVE) Ur Phencyclidine Scrn Negative (NEGATIVE) Ur Amphetamine Screen Negative (NEGATIVE) U Methamphetamines Scrn Positive H (NEGATIVE) Urine MDMA Screen Negative (NEGATIVE) U Benzodiazepines Scrn Negative (NEGATIVE) Urine Cocaine Screen Negative (NEGATIVE) U Marijuana (THC) Screen Negative (NEGATIVE) Ethyl Alcohol (0) mg/dL SARS CoV-2 RNA Rapid YESI (NEGATIVE) Meds: Medications Generic Name Dose Route Start Last Admin Trade Name Freq PRN Reason Stop Dose Admin Sodium Chloride 10 ml 04/24/20 08:03 04/24/20 10:44 Saline Flush FLUSH 10 ml ASDIRECTED PRN Administration Keep Vein Open Discontinued Medications Generic Name Dose Route Start Last Admin Trade Name Freq PRN Reason Stop Dose Admin Sodium Chloride 1,000 mls @ 999 mls/hr 04/24/20 09:11 04/24/20 09:58 Normal Saline IV 04/24/20 10:11 999 mls/hr .BOLUS ONE Administration Magnesium Sulfate 2 gm in 50 mls @ 50 mls/hr 04/24/20 09:11 Magnesium Sulfate In Water Premix IV 04/24/20 10:10 ONETIME ONE Potassium Chloride 10 meq/ 100 mls @ 100 mls/hr 04/24/20 09:12 04/24/20 09:59 Premix IV 04/24/20 10:11 100 mls/hr ONETIME ONE Administration Piperacillin Sod/Tazobactam 100 mls @ 200 mls/hr 04/24/20 10:09 04/24/20 11:00 Sod 3.375 gm/ Sodium Chloride IV 04/24/20 10:38 200 mls/hr ONETIME ONE Administration - Radiology Interpretation Free Text/Narrative:: [facility] Final Radiology Report Call: [phone] assistance Online chat: [email or web address] Name: THU RAPHAEL Age: 50Years F Date: 04/24/2020 SSN: -- : [id number] Study: CT ABDOMEN PELVIS WO CONT Requesting Physician: Piper Wang Images: [phone] Addl Studies: Provided Clinical History: Dysuria; Right CVA tenderness; WBC 21K Contrast: Without Contrast Medium: Contrast Amount: Contrast Method: Page 1 of 2 PROCEDURE INFORMATION: Exam: CT Abdomen And Pelvis Without Contrast Exam date and time: 04/24/2020 9:46 AM Age: 50 years old Clinical indication: Other: Dysuria; Right CVA tenderness; Wbc 21k TECHNIQUE: Imaging protocol: Computed tomography of the abdomen and pelvis without contrast. Radiation optimization: All CT scans at this facility use at least one of these dose optimization techniques: automated exposure control; mA and/or kV adjustment per patient size (includes targeted exams where dose is matched to clinical indication); or iterative reconstruction. COMPARISON: CT Abdomen Pelvis w Cont 02/29/2020 6:19 PM FINDINGS: Lungs: Bibasilar atelectasis. Liver: There is a diffuse decrease in hepatic parenchymal density, consistent with moderate fatty infiltration. The liver has a sagittal length of 20 cm. Gallbladder and bile ducts: There is moderate gallbladder distention. There are no visualized filling defects Pancreas: The pancreas is normal. Spleen: The spleen is normal. The spleen has a sagittal length. Adrenal glands: The adrenal glands are normal. Kidneys and ureters: Normal. No hydronephrosis. Stomach and bowel: There is moderate mucosal thickening of the ileum, cecum, ascending and transverse colon. Appendix: No evidence of appendicitis. THU RAPHAEL | Final Radiology Report CONFIDENTIALITY STATEMENT This report is intended only for use by the referring physician, and only in accordance with law. If you received this in error, call [phone]. Page 2 of 2 Intraperitoneal space: Low volume ascites is seen at the periphery of the liver and spleen spleen, extending to bilateral pericolic gutters and midline pelvis. Vasculature: The aorta is normal. Normal caliber. No aneurysm. Mild aortoiliac atherosclerotic calcification. Coronary artery calcifications. Lymph nodes: Unremarkable. No enlarged lymph nodes. Urinary bladder: Bladder is well distended. There are no filling defects. Reproductive: Unremarkable as visualized. Bones/joints: Advanced lumbosacral degenerative joint disease. No acute findings Soft tissues: Unremarkable. IMPRESSION: 1. Moderate gallbladder distention in comparison the prior exam. Recommend gallbladder ultrasound for further evaluation. 2. Low volume ascites has developed in comparison to the prior exam. 3. Findings compatible with colitis. Differential includes colitis of of infectious etiology such as Clostridium versus acute arterial thromboembolic disease. Recommend CT abdomen with IV contrast and surgical consultation. 4. Stable hepatomegaly and steatosis. 5. Chronic changes include aortoiliac atherosclerotic calcification, coronary artery calcifications and degenerative disease of the lumbosacral junction. Thank you for allowing us to participate in the care of your patient. Dictated and Authenticated by: Katey Mckeon MD 04/24/2020 10:38 AM Central Time ([place] & [place]) Departure - Departure Time of Disposition: 11:13 Disposition: DC/Tfer to [facility] 02 Clinical Impression: Hypokalemia due to excessive gastrointestinal loss of potassium, Hypomagnesemia Sepsis Qualifiers: Sepsis type: sepsis due to unspecified organism Sepsis acute organ dysfunction status: unspecified Qualified Code(s): A41.9 - Sepsis, unspecified organism - Discharge Information Forms: ED Department Discharge, Interfacility Transfer EMTALA Sepsis Event Note (ED) - Evaluation Sepsis Screening Result: No Definite Risk - Focused Exam Vital Signs: Vital Signs Temp Pulse Resp BP BP Pulse Ox 04/24/20 10:02 109 H 20 128/86 96 04/24/20 07:44 96.7 F L 115 H 20 126/79 98 - My Orders Last 24 Hours: My Active Orders 04/24/20 08:02 Blood Culture x2 Reflex Set [OM.PC] Stat Peripheral IV Insertion Adult [OM.PC] Stat 04/24/20 08:03 Sodium Chloride 0.9% [Saline Flush] 10 ml FLUSH ASDIRECTED PRN 04/24/20 08:04 Peripheral IV Care [RC] . DIRECTED 04/24/20 08:29 CULTURE BLOOD [BC] Stat 04/24/20 10:47 CULTURE URINE [RM] Stat - Assessment/Plan Last 24 Hours: My Active Orders 04/24/20 08:02 Blood Culture x2 Reflex Set [OM.PC] Stat Peripheral IV Insertion Adult [OM.PC] Stat 04/24/20 08:03 Sodium Chloride 0.9% [Saline Flush] 10 ml FLUSH ASDIRECTED PRN 04/24/20 08:04 Peripheral IV Care [RC] . DIRECTED 04/24/20 08:29 CULTURE BLOOD [BC] Stat 04/24/20 10:47 CULTURE URINE [RM] Stat
[2020-04-24 09:06] LABS: CHLORIDE,CL 84 mmol/L (98-107); SODIUM,NA 124 mmol/L (136-145)
[2020-04-24] MEDS ORDERED: Sodium Chloride 0.9% 1,000 ML IV ONE (09:11)
[2020-04-24] MEDS ORDERED: Magnesium Sulfate/Water 2 GM/50 ML BAG IV ONE (09:11)
[2020-04-24] MEDS ORDERED: Potassium Chloride 10 MEQ in Premix Bag 1 BAG IV ONE (09:12)
--- NOTE | 2020-04-24 09:57 | PCM.PRNOTE ---
- Free Text/Narrative Note: Consulted by ED to insert an IV on a patient who has had multiple attempts by RN. Upon entering room, pt is lying on a stretcher but in abdominal pain. I attempted two unsuccessful IV attempts without US. A tourniquet was applied to the left bicep. The left antecubital area was cleaned with alcohol. Using a 20 gauge angiocath, an IV was inserted into the left medial antecubital fossa area on third attempt, first attempt with ultrasound. The septal wall between artery and vein was not readily visible on US. Hit the collapsable silhouette. Excellent blood return, appears venous. Herminia Monahan, RN, verify placement. IV flushes without difficulty but it is barely inside the vein by just a few millimeters. IV was not long enough to properly secure. ED RN was notified to use arm carefully. IV was covered with tegaderm and secured with tape. RN was notified. Procedure Date & Time: 04/24/20 [id number]
[2020-04-24] MEDS: Sodium Chloride 0.9% 10 ML Syringe FLUSH PRN ×2 (10:01→10:44)
[2020-04-24] MEDS ORDERED: Piperacillin/Tazobactam 3.375 GM in Sodium Chloride 0.9% 100 ML IV ONE (10:09)
--- NOTE | 2020-04-24 10:39 | CT ---
PROCEDURE INFORMATION: Exam: CT Abdomen And Pelvis Without Contrast Exam date and time: 04/24/2020 9:46 AM Age: 50 years old Clinical indication: Other: Dysuria; Right CVA tenderness; Wbc 21k TECHNIQUE: Imaging protocol: Computed tomography of the abdomen and pelvis without contrast. Radiation optimization: All CT scans at this facility use at least one of these dose optimization techniques: automated exposure control; mA and/or kV adjustment per patient size (includes targeted exams where dose is matched to clinical indication); or iterative reconstruction. COMPARISON: CT Abdomen Pelvis w Cont 02/29/2020 6:19 PM FINDINGS: Lungs: Bibasilar atelectasis. Liver: There is a diffuse decrease in hepatic parenchymal density, consistent with moderate fatty infiltration. The liver has a sagittal length of 20 cm. Gallbladder and bile ducts: There is moderate gallbladder distention. There are no visualized filling defects Pancreas: The pancreas is normal. Spleen: The spleen is normal. The spleen has a sagittal length. Adrenal glands: The adrenal glands are normal. Kidneys and ureters: Normal. No hydronephrosis. Stomach and bowel: There is moderate mucosal thickening of the ileum, cecum, ascending and transverse colon. Appendix: No evidence of appendicitis. Intraperitoneal space: Low volume ascites is seen at the periphery of the liver and spleen spleen, extending to bilateral pericolic gutters and midline pelvis. Vasculature: The aorta is normal. Normal caliber. No aneurysm. Mild aortoiliac atherosclerotic calcification. Coronary artery calcifications. Lymph nodes: Unremarkable. No enlarged lymph nodes. Urinary bladder: Bladder is well distended. There are no filling defects. Reproductive: Unremarkable as visualized. Bones/joints: Advanced lumbosacral degenerative joint disease. No acute findings Soft tissues: Unremarkable. IMPRESSION: 1. Moderate gallbladder distention in comparison the prior exam. Recommend gallbladder ultrasound for further evaluation. 2. Low volume ascites has developed in comparison to the prior exam. 3. Findings compatible with colitis. Differential includes colitis of of infectious etiology such as Clostridium versus acute arterial thromboembolic disease. Recommend CT abdomen with IV contrast and surgical consultation. 4. Stable hepatomegaly and steatosis. 5. Chronic changes include aortoiliac atherosclerotic calcification, coronary artery calcifications and degenerative disease of the lumbosacral junction.
[2020-04-24] MEDS ORDERED: Ondansetron 4 MG/2 ML SDV IV ONE (11:30)
== END 2020-04-24 12:00 ==
LOC: DL.ED 07:33
DX: A41.9 Sepsis, unspecified organism (principal); E87.6 Hypokalemia; E83.42 Hypomagnesemia; Z20.828 Contact with and (suspected) exposure to other viral communicable diseases; I10 Essential (primary) hypertension; J44.9 Chronic obstructive pulmonary disease, unspecified; E11.9 Type 2 diabetes mellitus without complications; E66.9 Obesity, unspecified; F17.210 Nicotine dependence, cigarettes, uncomplicated; Z79.84 Long term (current) use of oral hypoglycemic drugs; Z79.899 Other long term (current) drug therapy; Z68.30 Body mass index [BMI] 30.0-30.9, adult
CPT/HCPCS: 36410; 36415; 74176; 80053; 80305; 80307; 81001; 83605; 83735; 84100; 84703; 85025; 86140; 87040; 87086; 87088; 87186; 87635; 96365; 96366; 96368; 96375; 99285; J2405; J2543; J3480; J7030; J7050; 99284; U0002

== ENCOUNTER 2020-04-30 10:39 | Emergency (ER) | payer MEDICAID ==
--- NOTE | 2020-04-30 10:47 | EDM.PDOC ---
ED HPI GENERAL MEDICAL PROBLEM - General Chief Complaint: Abdominal Pain Stated Complaint: ABDOMINAL PAIN SWOLLEN STOMACH PRIOR SURGERY Time Seen by Provider: 04/30/20 10:47 Source of Information: Reports: Patient, Old Records, RN, RN Notes Reviewed History Limitations: Reports: No Limitations - History of Present Illness INITIAL COMMENTS - FREE TEXT/NARRATIVE: Pt presents to ED via POV with c/o severe diffuse abdominal pain that began early yesterday and was initially at the upper abdomen. Pt states she was admitted to [facility] in [place] on 04/24/20, she does not know why she was admitted there, she knows it was for something to do with her abdomen. Pt states she had a colonoscopy on 04/28/20 and had "many" polyps removed. Pt denies hematochezia. Pt states she was discharged yesterday with prescriptions that she does not remember what they were for and did not get them filled. Pt rates pain at a 9/10. Pt admits to past alcohol abuse with heavy daily drinking since her about 3 or 4 years ago, but in 2019 she quit and has abstained from all alcohol drinking. She is not aware of any history of varices, pancreatitis, or GI bleeding. Onset: Gradual Duration: Constant, Getting Worse Location: Reports: Abdomen Quality: Reports: Ache, Pressure Severity: Severe Improves with: Reports: None Worsens with: Reports: Eating, Movement Associated Symptoms: Reports: No Other Symptoms Abdominal Pain Score (Numeric/FACES): 9 - Related Data Allergies Allergy/AdvReac Type Severity Reaction Status Date / Time No Known Allergies Allergy Verified 04/30/20 14:55 Home Meds: Home Meds Albuterol Sulfate [Albuterol Sulfate Hfa] 2 inh INH Q4H PRN 10/06/19 [History] Doxycycline [Vibramycin] 100 mg PO BID 10/27/19 [History] glipiZIDE [Glipizide ER] 5 mg PO DAILY 10/27/19 [History] lisinopriL [Lisinopril] 2.5 mg PO DAILY 10/27/19 [History] metFORMIN HCl [Metformin HCl] 1,000 mg PO BID 10/27/19 [History] predniSONE [Prednisone] 50 mg PO DAILY 10/27/19 [History] Past Medical History HEENT History: Reports: Impaired Vision Cardiovascular History: Reports: Hypertension Respiratory History: Reports: Asthma, COPD, Other (See Below) Gastrointestinal History: Reports: None Genitourinary History: Reports: None CLAY BURNER History: Reports: None Musculoskeletal History: Reports: None Neurological History: Reports: None Psychiatric History: Reports: Addiction Endocrine/Metabolic History: Reports: Diabetes, Type II, Obesity/BMI 30+ Hematologic History: Reports: None Immunologic History: Reports: None Oncologic (Cancer) History: Reports: None Dermatologic History: Reports: None - Infectious Disease History Infectious Disease History: Reports: Chicken Pox - Past Surgical History Head Surgeries/Procedures: Reports: None Social & Family History - Family History Family Medical History: Noncontributory - Caffeine Use Caffeine Use: Reports: None - Alcohol Use Alcohol Use History: Yes Days Per Week of Alcohol Use: 7 (Heavy daily use for 3 to 4 years, quit in 2019) Alcohol Use Frequency: Not Used in Over 1 Month - Living Situation & Occupation Living situation: Reports: , with Family Occupation: Unemployed ED ROS GENERAL - Review of Systems Review Of Systems: Comprehensive ROS is negative, except as noted in HPI. ED EXAM, GI/ABD - Physical Exam Exam: See Below Exam Limited By: No Limitations General Appearance: Alert, Anxious, Moderate Distress (due to pain), Obese. No: Active Emesis Eyes: Bilateral: Normal Appearance (No scleral icterus) Ears: Normal External Exam, Hearing Grossly Normal Nose: Normal Inspection, No Blood Throat/Mouth: Normal Lips, Normal Voice, No Airway Compromise Head: Atraumatic, Normocephalic Neck: Normal Inspection, Non-Tender, Full Range of Motion Respiratory/Chest: No Respiratory Distress, No Accessory Muscle Use, Decreased Breath Sounds, Other (Coarse breath sounds). No: Rales, Rhonchi, Wheezing Cardiovascular: Regular Rate, Rhythm, No Edema GI/Abdominal Exam: No Distention (firm but not distended), No Abnormal Bruit, Pelvis Stable, Guarding, Tender (Generalized tendernss, most severe at RUQ and epigastric region.). No: Rigid, Rebound (Female) Exam: Deferred Rectal (Female) Exam: Deferred Back Exam: Normal Inspection Extremities: Normal Inspection Neurological: Alert, Oriented, CN II-XII Intact, No Motor/Sensory Deficits Psychiatric: Anxious, Tearful Skin Exam: Warm, Dry, Intact, Normal Color, No Rash. No: Ecchymosis, Jaundice, Petechiae Course - Vital Signs Last Recorded V/S: Last Vital Signs Temp 98.2 F 04/30/20 10:48 Pulse 91 04/30/20 10:48 Resp 20 04/30/20 10:48 BP 119/78 04/30/20 10:48 Pulse Ox 100 04/30/20 10:48 - Orders/Labs/Meds Orders: Active Orders 24 hr Category Date Time Status Peripheral IV Care [RC] . DIRECTED Care 04/30/20 10:54 Active CULTURE BLOOD [BC] Stat Lab 04/30/20 11:02 Results CULTURE BLOOD [BC] Stat Lab 04/30/20 11:09 Results Sodium Chloride 0.9% [Saline Flush] Med 04/30/20 10:53 Active 10 ml FLUSH ASDIRECTED PRN Blood Culture x2 Reflex Set [OM.PC] Stat Oth 04/30/20 10:52 Ordered IO Insertion [Intraosseous Insertion] [OM.PC] Routine Oth 04/30/20 14:00 Ordered Peripheral IV Insertion Adult [OM.PC] Stat Oth 04/30/20 10:53 Ordered Medication Orders Sodium Chloride (Saline Flush) 10 ml FLUSH ASDIRECTED PRN PRN Reason: Keep Vein Open Labs: Laboratory Tests 04/30/20 04/30/20 04/30/20 Range/Units 11:09 11:09 11:09 WBC 28.5 H* (5.0-10.0) 10^3/uL RBC 2.54 L (4.2-5.4) 10^6/uL Hgb 9.0 L (12.0-16.0) g/dL Hct 27.8 L (37.0-47.0) % MCV 109.4 H D (80-100) fL MCH 35.4 H (27.0-34.0) pg MCHC 32.4 L (33.0-35.0) g/dL Plt Count 377 D (150-450) 10^3/uL Neut % (Auto) 82.6 H (42.2-75.2) % Lymph % (Auto) 9.3 L (20.5-50.1) % [place] % (Auto) 6.2 (2-8) % Eos % (Auto) 1.7 (1.0-3.0) % Baso % (Auto) 0.2 (0.0-1.0) % Add Manual Diff Yes Neutrophils % (Manual) 70 (42-75) % Band Neutrophils % 8 % Lymphocytes % (Manual) 15 L (20-50) % Monocytes % (Manual) 4 (2-8) % Eosinophils % (Manual) 3 (1-3) % Hypersegmented Neuts Few Vacuolated Monocytes Few Toxic Granulation 1+ slight Dohle Bodies 1+ slight Platelet Estimate Adequate Polychromasia 1+ slight Basophilic Stippling 1+ slight Anisocytosis 1+ slight Macrocytosis 3+ marked Target Cells 2+ moderate Stomatocytes 2+ moderate Sodium 133 L (136-145) mmol/L Potassium 3.3 L (3.5-5.1) mmol/L Chloride 96 L D (98-107) mmol/L Carbon Dioxide 29 (21-32) mmol/L Anion Gap 11.3 (7-13) mEq/L BUN 5 L (7-18) mg/dL Creatinine 0.67 (0.55-1.02) mg/dL Est Cr Clr Drug Dosing 92.40 mL/min Estimated GFR (MDRD) > 60 BUN/Creatinine Ratio 7.5 (No establ ref range) Glucose 192 H (74-99) mg/dL Lactic Acid 2.9 H* (0.4-2.0) mmol/L Calcium 7.8 L (8.5-10.1) mg/dL Total Bilirubin 1.2 H (0.2-1.0) mg/dL AST 46 H (15-37) U/L ALT 15 (14-59) U/L Alkaline Phosphatase 302 H (46-116) U/L Total Protein 5.9 L (6.4-8.2) g/dL Albumin 1.9 L (3.4-5.0) g/dL Globulin 4.0 Albumin/Globulin Ratio 0.48 Amylase 35 (25-115) U/L Lipase 87 (73-393) U/L SARS CoV-2 RNA Rapid YESI (NEGATIVE) 04/30/20 Range/Units 14:00 WBC (5.0-10.0) 10^3/uL RBC (4.2-5.4) 10^6/uL Hgb (12.0-16.0) g/dL Hct (37.0-47.0) % MCV (80-100) fL MCH (27.0-34.0) pg MCHC (33.0-35.0) g/dL Plt Count (150-450) 10^3/uL Neut % (Auto) (42.2-75.2) % Lymph % (Auto) (20.5-50.1) % [place] % (Auto) (2-8) % Eos % (Auto) (1.0-3.0) % Baso % (Auto) (0.0-1.0) % Add Manual Diff Neutrophils % (Manual) (42-75) % Band Neutrophils % % Lymphocytes % (Manual) (20-50) % Monocytes % (Manual) (2-8) % Eosinophils % (Manual) (1-3) % Hypersegmented Neuts Vacuolated Monocytes Toxic Granulation Dohle Bodies Platelet Estimate Polychromasia Basophilic Stippling Anisocytosis Macrocytosis Target Cells Stomatocytes Sodium (136-145) mmol/L Potassium (3.5-5.1) mmol/L Chloride (98-107) mmol/L Carbon Dioxide (21-32) mmol/L Anion Gap (7-13) mEq/L BUN (7-18) mg/dL Creatinine (0.55-1.02) mg/dL Est Cr Clr Drug Dosing mL/min Estimated GFR (MDRD) BUN/Creatinine Ratio (No establ ref range) Glucose (74-99) mg/dL Lactic Acid (0.4-2.0) mmol/L Calcium (8.5-10.1) mg/dL Total Bilirubin (0.2-1.0) mg/dL AST (15-37) U/L ALT (14-59) U/L Alkaline Phosphatase (46-116) U/L Total Protein (6.4-8.2) g/dL Albumin (3.4-5.0) g/dL Globulin Albumin/Globulin Ratio Amylase (25-115) U/L Lipase (73-393) U/L SARS CoV-2 RNA Rapid YESI Negative (NEGATIVE) Meds: Medications Generic Name Dose Route Start Last Admin Trade Name Freq PRN Reason Stop Dose Admin Sodium Chloride 10 ml 04/30/20 10:53 Saline Flush FLUSH ASDIRECTED PRN Keep Vein Open Discontinued Medications Generic Name Dose Route Start Last Admin Trade Name Freq PRN Reason Stop Dose Admin Hydromorphone HCl 1 mg 04/30/20 10:53 04/30/20 12:19 Dilaudid IVPUSH 04/30/20 10:54 1 mg ONETIME ONE Administration Hydromorphone HCl 1 mg 04/30/20 12:40 04/30/20 12:47 Dilaudid IVPUSH 04/30/20 12:41 1 mg ONETIME ONE Administration Hydromorphone HCl 1 mg 04/30/20 14:19 04/30/20 14:35 Dilaudid IVPUSH 04/30/20 14:20 1 mg ONETIME ONE Administration Sodium Chloride 1,000 mls @ 999 mls/hr 04/30/20 10:53 04/30/20 13:25 Normal Saline IV 04/30/20 11:53 999 mls/hr .BOLUS ONE Administration Sodium Chloride 1,000 mls @ 999 mls/hr 04/30/20 11:46 Normal Saline IV 04/30/20 12:46 .BOLUS ONE Piperacillin Sod/Tazobactam 100 mls @ 200 mls/hr 04/30/20 11:46 Sod 4.5 gm/ Sodium Chloride IV 04/30/20 12:15 ONETIME ONE Vancomycin HCl 1,500 mg/ 500 mls @ 333.333 mls/hr 04/30/20 12:40 Sodium Chloride IV 04/30/20 14:09 ONETIME ONE Sodium Chloride Confirm 04/30/20 13:21 Normal Saline Administered 04/30/20 13:22 Dose 100 mls @ as directed .ROUTE .STK-MED ONE Lidocaine HCl 30 ml 04/30/20 14:01 04/30/20 14:50 Xylocaine-Mpf 1% INJECT 04/30/20 14:02 30 ml ONETIME ONE Administration Lidocaine HCl Confirm 04/30/20 14:06 04/30/20 14:49 Xylocaine 1% Administered 04/30/20 14:07 Not Given Dose 50 mg .ROUTE .STK-MED ONE Ondansetron HCl 4 mg 04/30/20 10:53 04/30/20 12:19 Zofran IV 04/30/20 10:54 4 mg ONETIME ONE Administration Piperacillin Sod/Tazobactam Sod Confirm 04/30/20 13:20 04/30/20 13:25 Zosyn Administered 04/30/20 13:21 3.375 gm Dose Administration 3.375 gm .ROUTE .[facility] Interpretation Free Text/Narrative:: [facility] Report Call: [phone] assistance Online chat: [email or web address] Name: THU RAPHAEL Age: 50Years F Date: 04/30/2020 SSN: -- : [id number] Study: CT ABDOMEN PELVIS WO CONT Requesting Physician: ATA HORN Images: [id number] Addl Studies: Provided Clinical History: Abd. pain w/distention & sepsis s/p colonoscopy. Pt reports colonoscopy on 04-28-20 with multiple polyps removed. Contrast: Without Contrast Medium: Contrast Amount: Contrast Method: Page 1 of 2 PROCEDURE INFORMATION: Exam: CT Abdomen And Pelvis Without Contrast Exam date and time: 04/30/2020 1:08 PM Age: 50 years old Clinical indication: Abdominal pain; Generalized; Additional info: Abd. Pain w/distention & sepsis S/P colonoscopy. PT reports colonoscopy on 04-28-20 with multiple polyps removed. TECHNIQUE: Imaging protocol: Computed tomography of the abdomen and pelvis without contrast. Radiation optimization: All CT scans at this facility use at least one of these dose optimization techniques: automated exposure control; mA and/or kV adjustment per patient size (includes targeted exams where dose is matched to clinical indication); or iterative reconstruction. COMPARISON: CT Abdomen Pelvis wo Cont 04/24/2020 9:46 AM FINDINGS: Liver: Normal. No mass. Gallbladder and bile ducts: The gallbladder wall appears to be thickened. No radiopaque stones are identified. Ultrasound could provide further assessment if indicated desired clinically. Pancreas: There is moderate grade peripancreatic fat stranding. Finding is concerning for possible pancreatitis. There is no pancreatic ductal dilatation or mass identified on noncontrast CT evaluation. Spleen: Normal. No splenomegaly. Adrenal glands: Normal. No mass. Kidneys and ureters: Normal. No hydronephrosis. Stomach and bowel: Unremarkable. No obstruction. No mucosal thickening. Appendix: No evidence of appendicitis. Intraperitoneal space: Small amount of ascites is present around the liver. There is also free fluid within the pelvis. THU RAPHAEL | Final Radiology Report CONFIDENTIALITY STATEMENT This report is intended only for use by the referring physician, and only in accordance with law. If you received this in error, call [phone]. Page 2 of 2 Vasculature: Unremarkable. No abdominal aortic aneurysm. Lymph nodes: Unremarkable. No enlarged lymph nodes. Urinary bladder: Unremarkable as visualized. Reproductive: Unremarkable as visualized. Bones/joints: Unremarkable. No acute fracture. Soft tissues: Unremarkable. IMPRESSION: 1. Findings concerning for probable acute pancreatitis. 2. Gallbladder distention and wall thickening. Acute cholecystitis is possible. No radiopaque stones are identified. Ultrasound could be considered for additional assessment. 3. Small to moderate amount of ascites likely related to presumed pancreatitis. Thank you for allowing us to participate in the care of your patient. Dictated and Authenticated by: Musa Ernst MD 04/30/2020 1:28 PM Central Time ([place] & [place]) - Re-Assessments/Exams Free Text/Narrative Re-Assessment/Exam: 04/30/20 Pt had a Rt arm PICC line removed at [facility] in [place] yesterday. Several RNs were unsuccessful in obtaining IV access. Anesthesia was called in and could not establish an IV, then called US tech to assist with US guided IV, but was still unsuccessful. An EJ was finally obtained in the Rt neck, but infiltrated with less than half of the Zosyn IV complete. Eventually an IO was determined to be the last resort and was placed. Records from [facility] have not yet arrived for review. 04/30/20 14:23 No bed and no surgeon available in [place]. No beds available in [facility]. No beds available in [facility]. No beds avail. in [place]. A surgical bed is avail. at [facility] if pt. is COVID negative (test pending). COVID is negative. Pt accepted as a direct admit by Dr. Gale to [facility] in [place] with Dr. Flower willing to consult for gen. surgery. Departure - Departure Time of Disposition: 15:30 Disposition: DC/Tfer to [facility] 02 Condition: Serious Clinical Impression: Acute cholecystitis, History of colonoscopy with polypectomy Sepsis Qualifiers: Sepsis type: sepsis due to unspecified organism Sepsis acute organ dysfunction status: unspecified Qualified Code(s): A41.9 - Sepsis, unspecified organism Acute pancreatitis Qualifiers: Pancreatitis type: unspecified pancreatitis type Acute pancreatitis complication: unspecified Qualified Code(s): K85.90 - Acute pancreatitis without necrosis or infection, unspecified - Discharge Information *PRESCRIPTION DRUG MONITORING PROGRAM REVIEWED*: Not Applicable *COPY OF PRESCRIPTION DRUG MONITORING REPORT IN PATIENT HELENE: Not Applicable Forms: ED Department Discharge, Interfacility Transfer EMTALA Sepsis Event Note (ED) - Focused Exam Vital Signs: Vital Signs Temp Pulse Resp BP Pulse Ox 04/30/20 10:48 98.2 F 91 20 119/78 100 - My Orders Last 24 Hours: My Active Orders 04/30/20 10:52 Blood Culture x2 Reflex Set [OM.PC] Stat 04/30/20 10:53 Sodium Chloride 0.9% [Saline Flush] 10 ml FLUSH ASDIRECTED PRN Peripheral IV Insertion Adult [OM.PC] Stat 04/30/20 10:54 Peripheral IV Care [RC] . DIRECTED 04/30/20 11:02 CULTURE BLOOD [BC] Stat 04/30/20 11:09 CULTURE BLOOD [BC] Stat 04/30/20 14:00 IO Insertion [Intraosseous Insertion] [OM.PC] Routine - Assessment/Plan Last 24 Hours: My Active Orders 04/30/20 10:52 Blood Culture x2 Reflex Set [OM.PC] Stat 04/30/20 10:53 Sodium Chloride 0.9% [Saline Flush] 10 ml FLUSH ASDIRECTED PRN Peripheral IV Insertion Adult [OM.PC] Stat 04/30/20 10:54 Peripheral IV Care [RC] . DIRECTED 04/30/20 11:02 CULTURE BLOOD [BC] Stat 04/30/20 11:09 CULTURE BLOOD [BC] Stat 04/30/20 14:00 IO Insertion [Intraosseous Insertion] [OM.PC] Routine
[2020-04-30] MEDS ORDERED: Sodium Chloride 0.9% 1,000 ML IV ONE ×2 (10:53→11:46)
[2020-04-30] MEDS ORDERED: HYDROmorphone 1 MG/ML Syringe IVPUSH ONE ×4 (10:53→16:04)
[2020-04-30] MEDS ORDERED: Ondansetron 4 MG/2 ML SDV IV ONE (10:53)
[2020-04-30] MEDS ORDERED: Sodium Chloride 0.9% 10 ML Syringe FLUSH PRN (10:53)
[2020-04-30 11:43] LABS: ANION GAP 11.3 mEq/L (7-13); CHLORIDE,CL 96 mmol/L (98-107); SODIUM,NA 133 mmol/L (136-145)
[2020-04-30] MEDS ORDERED: Piperacillin/Tazobactam 4.5 GM in Sodium Chloride 0.9% 100 ML IV ONE (11:46)
[2020-04-30] MEDS ORDERED: Sodium Chloride 0.9% 100 ML ONE (13:21)
--- NOTE | 2020-04-30 13:28 | CT ---
PROCEDURE INFORMATION: Exam: CT Abdomen And Pelvis Without Contrast Exam date and time: 04/30/2020 1:08 PM Age: 50 years old Clinical indication: Abdominal pain; Generalized; Additional info: Abd. Pain w/distention & sepsis S/P colonoscopy. PT reports colonoscopy on 04-28-20 with multiple polyps removed. TECHNIQUE: Imaging protocol: Computed tomography of the abdomen and pelvis without contrast. Radiation optimization: All CT scans at this facility use at least one of these dose optimization techniques: automated exposure control; mA and/or kV adjustment per patient size (includes targeted exams where dose is matched to clinical indication); or iterative reconstruction. COMPARISON: CT Abdomen Pelvis wo Cont 04/24/2020 9:46 AM FINDINGS: Liver: Normal. No mass. Gallbladder and bile ducts: The gallbladder wall appears to be thickened. No radiopaque stones are identified. Ultrasound could provide further assessment if indicated desired clinically. Pancreas: There is moderate grade peripancreatic fat stranding. Finding is concerning for possible pancreatitis. There is no pancreatic ductal dilatation or mass identified on noncontrast CT evaluation. Spleen: Normal. No splenomegaly. Adrenal glands: Normal. No mass. Kidneys and ureters: Normal. No hydronephrosis. Stomach and bowel: Unremarkable. No obstruction. No mucosal thickening. Appendix: No evidence of appendicitis. Intraperitoneal space: Small amount of ascites is present around the liver. There is also free fluid within the pelvis. Vasculature: Unremarkable. No abdominal aortic aneurysm. Lymph nodes: Unremarkable. No enlarged lymph nodes. Urinary bladder: Unremarkable as visualized. Reproductive: Unremarkable as visualized. Bones/joints: Unremarkable. No acute fracture. Soft tissues: Unremarkable. IMPRESSION: 1. Findings concerning for probable acute pancreatitis. 2. Gallbladder distention and wall thickening. Acute cholecystitis is possible. No radiopaque stones are identified. Ultrasound could be considered for additional assessment. 3. Small to moderate amount of ascites likely related to presumed pancreatitis.
[2020-04-30] MEDS ORDERED: Lidocaine 1% 30 ML SDV INJECT ONE (14:01)
[2020-04-30] MEDS ORDERED: Lidocaine 1% 50 MG/5 ML Syringe ONE (14:06)
== END 2020-04-30 16:19 ==
LOC: DL.ED 10:39
DX: K81.0 Acute cholecystitis (principal); K85.90 Acute pancreatitis without necrosis or infection, unspecified; A41.9 Sepsis, unspecified organism; Z86.010 Personal history of colon polyps; J44.9 Chronic obstructive pulmonary disease, unspecified; I10 Essential (primary) hypertension; E11.9 Type 2 diabetes mellitus without complications; E66.9 Obesity, unspecified; Z79.899 Other long term (current) drug therapy; Z20.828 Contact with and (suspected) exposure to other viral communicable diseases; Z68.38 Body mass index [BMI] 38.0-38.9, adult
CPT/HCPCS: 36415; 36680; 74176; 80053; 82150; 83605; 83690; 85025; 87040; 87635; 96374; 96375; 96376; 99285; J1170; J2001; J2405; J2543; J7030; U0002

== ENCOUNTER 2020-05-11 16:15 | Emergency (ER) | payer MEDICAID, OTHER ==
--- NOTE | 2020-05-11 16:18 | PCM.PRNOTE ---
- Free Text/Narrative Note: Consulted by ED to insert an IV on a patient who has had multiple attempts by EMS. Upon entering room, pt is lying on a stretcher but in abdominal pain. A tourniquet was applied to the right bicep. The right antecubital area was cleaned with alcohol. Using a 20 gauge angiocath, an IV was inserted into the right antecubital fossa on second attempt. Excellent blood return. IV flushes without difficulty. IV was covered with tegaderm and secured with tape. RN was notified. Procedure Date & Time 05/11/20 [id number]
[2020-05-11] MEDS ORDERED: Piperacillin/Tazobactam 3.375 GM in Sodium Chloride 0.9% 100 ML IV ONE (16:24)
[2020-05-11 16:29] LABS: ANION GAP 15.4 mEq/L (7-13); CHLORIDE,CL 83 mmol/L (98-107)
[2020-05-11 16:59] LABS: SODIUM,NA 112 mmol/L (136-145)
[2020-05-11] MEDS ORDERED: Sodium Chloride 0.9% 1,000 ML IV ONE (17:15)
[2020-05-11] MEDS ORDERED: Norepinephrine 4 MG in Dextrose 5% in Water 246 ML IV SCH ×2 (18:00)
[2020-05-11] MEDS ORDERED: Sodium Chloride 0.45% 1,000 ML IV SCH (18:45)
[2020-05-11] MEDS ORDERED: fentaNYL 100 MCG/2 ML SDV IVPUSH ONE (18:45)
--- NOTE | 2020-05-11 18:57 | EDM.PDOC ---
<Mirta Rivero - Last Filed: 05/11/20 19:35> ED HPI GENERAL MEDICAL PROBLEM - General Chief Complaint: Gastrointestinal Problem Time Seen by Provider: 05/11/20 16:15 - Related Data Allergies Allergy/AdvReac Type Severity Reaction Status Date / Time No Known Allergies Allergy Verified 05/16/20 11:24 Home Meds: Home Meds Albuterol Sulfate [Albuterol Sulfate Hfa] 2 inh INH Q4H PRN 10/06/19 [History] Doxycycline [Vibramycin] 100 mg PO BID 10/27/19 [History] predniSONE [Prednisone] 50 mg PO DAILY 10/27/19 [History] Departure - Departure Time of Disposition: 19:36 Disposition: Against Medical Advice 07 Condition: Serious Clinical Impression: Hyponatremia, Hyperkalemia Hypotension Qualifiers: Hypotension type: unspecified hypotension type Qualified Code(s): I95.9 - Hypotension, unspecified Leukocytosis Qualifiers: Leukocytosis type: unspecified Qualified Code(s): D72.829 - Elevated white blood cell count, unspecified Acute kidney failure Qualifiers: Acute renal failure type: unspecified Qualified Code(s): N17.9 - Acute kidney failure, unspecified - Discharge Information *PRESCRIPTION DRUG MONITORING PROGRAM REVIEWED*: No *COPY OF PRESCRIPTION DRUG MONITORING REPORT IN PATIENT HELENE: No Referrals: PCP,None [Primary Care Provider] - Forms: ED Department Discharge Additional Instructions: Return to the ER immediately with any problems STOP taking Propranolol (Inderal) STOP taking Spironolactone (Aldactone) STOP taking Metformin STOP taking Lisinopril (Prinivil, Zestril) Drink ONLY Pedialyte, Powerade, or Gatorade DO NOT DRINK WATER <Jane Richmond - Last Filed: 05/17/20 15:04> ED HPI GENERAL MEDICAL PROBLEM - General Source of Information: Reports: Patient, EMS, EMS Notes Reviewed, RN, RN Notes Reviewed History Limitations: Reports: No Limitations - History of Present Illness INITIAL COMMENTS - FREE TEXT/NARRATIVE: Patient presents to ER per [place] ambulance service with complaint of abdominal pain, and abnormal lab work at [facility] clinic. Patient states she she has a surgery in [place] on April 30. Patient states she has been feeling very sleepy, and pain in her abdomen. Patient denies any fever or chills. 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 Musculoskeletal History: Reports: None Neurological History: Reports: None Psychiatric History: Reports: Addiction Endocrine/Metabolic History: Reports: Diabetes, Type II, Obesity/BMI 30+ Hematologic History: Reports: None Immunologic History: Reports: None Oncologic (Cancer) History: Reports: None Dermatologic History: Reports: None - Infectious Disease History Infectious Disease History: Reports: Chicken Pox - Past Surgical History Head Surgeries/Procedures: Reports: None Social & Family History - Family History Family Medical History: No Pertinent Family History - Tobacco Use Tobacco Use Status *Q: Current Every Day Tobacco User Years of Tobacco use: 20 Packs/Tins Daily: 0.5 - Caffeine Use Caffeine Use: Reports: Coffee - Recreational Drug Use Recreational Drug Use: No - Living Situation & Occupation Living situation: Reports: , with Family Occupation: Unemployed ED ROS GENERAL - Review of Systems Review Of Systems: Comprehensive ROS is negative, except as noted in HPI. ED EXAM, GI/ABD - Physical Exam Exam: See Below Exam Limited By: No Limitations General Appearance: Alert, WD/WN, Mild Distress Eyes: Bilateral: Normal Appearance, EOMI Ears: Normal External Exam, Hearing Grossly Normal Nose: Normal Inspection Throat/Mouth: Normal Inspection, Normal Voice, No Airway Compromise Head: Atraumatic, Normocephalic Neck: Normal Inspection, Supple, Non-Tender, Full Range of Motion Respiratory/Chest: No Respiratory Distress, No Accessory Muscle Use, Chest Non-Tender, Decreased Breath Sounds Cardiovascular: Normal Peripheral Pulses, Regular Rate, Rhythm, No Edema, No Gallop, No JVD, No Murmur, No Rub GI/Abdominal Exam: Normal Bowel Sounds, Soft, Tender (incisional site in epigastrum area, draining clear non-purlulent, non-odorous, bilious appearing fluid) (Female) Exam: Deferred Rectal (Female) Exam: Deferred Back Exam: Normal Inspection, Full Range of Motion, NT Extremities: Normal Inspection, Normal Range of Motion, Non-Tender, Normal Capillary Refill, No Pedal Edema Neurological: Alert, Oriented, CN II-XII Intact, Normal Cognition, Normal Gait, Normal Reflexes, No Motor/Sensory Deficits Psychiatric: Normal Affect, Normal Mood Skin Exam: Warm, Dry, Intact, Normal Color, No Rash Lymphatic: No Adenopathy Course - Vital Signs Last Recorded V/S: Last Vital Signs Temp 96.6 F L 05/11/20 15:57 Pulse 79 05/11/20 15:57 Resp 24 H 05/11/20 15:57 BP 91/39 L 05/11/20 16:18 Pulse Ox 98 05/11/20 15:57 - Orders/Labs/Meds Labs: Laboratory Tests 05/11/20 05/11/20 05/11/20 Range/Units 16:00 16:00 16:00 WBC 37.8 H* (5.0-10.0) 10^3/uL RBC 3.99 L (4.2-5.4) 10^6/uL Hgb 13.8 D (12.0-16.0) g/dL Hct 38.9 (37.0-47.0) % MCV 97.5 D (80-100) fL MCH 34.6 H (27.0-34.0) pg MCHC 35.5 H (33.0-35.0) g/dL Plt Count 470 H D (150-450) 10^3/uL Lymph % (Auto) 13.8 L (20.5-50.1) % [place] % (Auto) 4.8 (2-8) % Eos % (Auto) 1.5 (1.0-3.0) % Add Manual Diff Yes Neutrophils % (Manual) 64 (42-75) % Band Neutrophils % 14 % Lymphocytes % (Manual) 16 L (20-50) % Atypical Lymphs % 0 % Monocytes % (Manual) 3 (2-8) % Eosinophils % (Manual) 3 (1-3) % Sodium 112 L* D (136-145) mmol/L Potassium 6.4 H D (3.5-5.1) mmol/L Chloride 83 L D (98-107) mmol/L Carbon Dioxide 20 L (21-32) mmol/L Anion Gap 15.4 H (7-13) mEq/L BUN 51 H D (7-18) mg/dL Creatinine 2.33 H D (0.55-1.02) mg/dL Est Cr Clr Drug Dosing 26.57 mL/min Estimated GFR (MDRD) 22 BUN/Creatinine Ratio 21.9 (No establ ref range) Glucose 129 H (74-99) mg/dL Lactic Acid 1.5 (0.4-2.0) mmol/L Calcium 7.7 L (8.5-10.1) mg/dL Phosphorus 7.8 H (2.6-4.7) mg/dL Magnesium 2.5 H (1.8-2.4) mg/dL Total Bilirubin 0.8 (0.2-1.0) mg/dL AST 104 H (15-37) U/L ALT 20 (14-59) U/L Alkaline Phosphatase 263 H (46-116) U/L C-Reactive Protein 4.0 H (0.0-0.9) mg/dL Total Protein 4.0 L (6.4-8.2) g/dL Albumin 1.2 L (3.4-5.0) g/dL Globulin 2.8 Albumin/Globulin Ratio 0.43 Amylase 47 (25-115) U/L Lipase 163 (73-393) U/L Urine Opiates Screen (NEGATIVE) Ur Oxycodone Screen (NEGATIVE) Urine Methadone Screen (NEGATIVE) Ur Barbiturates Screen (NEGATIVE) U Tricyclic Antidepress (NEGATIVE) Ur Phencyclidine Scrn (NEGATIVE) Ur Amphetamine Screen (NEGATIVE) U Methamphetamines Scrn (NEGATIVE) Urine MDMA Screen (NEGATIVE) U Benzodiazepines Scrn (NEGATIVE) Urine Cocaine Screen (NEGATIVE) U Marijuana (THC) Screen (NEGATIVE) Ethyl Alcohol < 3 (0) mg/dL 05/11/20 Range/Units 17:55 WBC (5.0-10.0) 10^3/uL RBC (4.2-5.4) 10^6/uL Hgb (12.0-16.0) g/dL Hct (37.0-47.0) % MCV (80-100) fL MCH (27.0-34.0) pg MCHC (33.0-35.0) g/dL Plt Count (150-450) 10^3/uL Lymph % (Auto) (20.5-50.1) % [place] % (Auto) (2-8) % Eos % (Auto) (1.0-3.0) % Add Manual Diff Neutrophils % (Manual) (42-75) % Band Neutrophils % % Lymphocytes % (Manual) (20-50) % Atypical Lymphs % % Monocytes % (Manual) (2-8) % Eosinophils % (Manual) (1-3) % Sodium (136-145) mmol/L Potassium (3.5-5.1) mmol/L Chloride (98-107) mmol/L Carbon Dioxide (21-32) mmol/L Anion Gap (7-13) mEq/L BUN (7-18) mg/dL Creatinine (0.55-1.02) mg/dL Est Cr Clr Drug Dosing mL/min Estimated GFR (MDRD) BUN/Creatinine Ratio (No establ ref range) Glucose (74-99) mg/dL Lactic Acid (0.4-2.0) mmol/L Calcium (8.5-10.1) mg/dL Phosphorus (2.6-4.7) mg/dL Magnesium (1.8-2.4) mg/dL Total Bilirubin (0.2-1.0) mg/dL AST (15-37) U/L ALT (14-59) U/L Alkaline Phosphatase (46-116) U/L C-Reactive Protein (0.0-0.9) mg/dL Total Protein (6.4-8.2) g/dL Albumin (3.4-5.0) g/dL Globulin Albumin/Globulin Ratio Amylase (25-115) U/L Lipase (73-393) U/L Urine Opiates Screen Positive H (NEGATIVE) Ur Oxycodone Screen Positive H (NEGATIVE) Urine Methadone Screen Negative (NEGATIVE) Ur Barbiturates Screen Negative (NEGATIVE) U Tricyclic Antidepress Negative (NEGATIVE) Ur Phencyclidine Scrn Negative (NEGATIVE) Ur Amphetamine Screen Negative (NEGATIVE) U Methamphetamines Scrn Negative (NEGATIVE) Urine MDMA Screen Negative (NEGATIVE) U Benzodiazepines Scrn Negative (NEGATIVE) Urine Cocaine Screen Negative (NEGATIVE) U Marijuana (THC) Screen Negative (NEGATIVE) Ethyl Alcohol (0) mg/dL Meds: Medications Discontinued Medications Generic Name Dose Route Start Last Admin Trade Name Freq PRN Reason Stop Dose Admin Fentanyl 50 mcg 05/11/20 18:45 Sublimaze IVPUSH 05/11/20 18:46 ONETIME ONE Piperacillin Sod/Tazobactam 100 mls @ 200 mls/hr 05/11/20 16:24 05/11/20 16:54 Sod 3.375 gm/ Sodium Chloride IV 05/11/20 16:53 200 mls/hr ONETIME ONE Administration Sodium Chloride 1,000 mls @ 999 mls/hr 05/11/20 17:15 05/11/20 17:48 Normal Saline IV 05/11/20 18:15 999 mls/hr .BOLUS ONE Administration Norepinephrine Bitartrate 4 mg 250 mls @ 7.5 mls/hr 05/11/20 18:00 / Dextrose/Water IV TITRATE YU Protocol 2 MCG/MIN Sodium Chloride 1,000 mls @ 100 mls/hr 05/11/20 18:45 Sodium Chloride 0.45% IV ASDIRECTED YU - Re-Assessments/Exams Free Text/Narrative Re-Assessment/Exam: Several IV attempts. TANK WASHER able to place a right AC IV, which infiltrated. Other nursing staff unsuccessful with several attempts. Discussed an IO placement with the patient as she was quite hypotensive (60's/30's). Patient absolutely refuses IO placement as she has had one in the past. Also discussed transferring the patient to [facility] in [place] as [facility] and [facility], as well as both hospitals in [facility], are on diversion. Patient is refusing to be transferred to another facility. Dr. Fierro called to come to the ER. He entered the room with me and tried to convince the patient to be admitted to the hospital here. She is also refusing this. Patient signed AMA and left. States she is feeling much better and will return to the ER if she needs anything more. Patient informed that she her BP and sodium are dangerously low and this is not a cotto choice. Informed that she very well could if she left without being cared for further. States she is aware of this, would like nothing more done, and would like to go home. Departure - Departure Condition: Serious Sepsis Event Note (ED) - Evaluation Sepsis Screening Result: No Definite Risk
== END 2020-05-11 19:51 | disposition left against medical advice (07) ==
LOC: DL.ED 16:15
DX: E87.1 Hypo-osmolality and hyponatremia (principal); E87.5 Hyperkalemia; I95.9 Hypotension, unspecified; D72.829 Elevated white blood cell count, unspecified; N17.9 Acute kidney failure, unspecified; I10 Essential (primary) hypertension; J44.9 Chronic obstructive pulmonary disease, unspecified; E11.9 Type 2 diabetes mellitus without complications; F17.210 Nicotine dependence, cigarettes, uncomplicated; E66.9 Obesity, unspecified; Z68.38 Body mass index [BMI] 38.0-38.9, adult
CPT/HCPCS: 36410; 36415; 80053; 80305-QW; 80307; 82150; 83605; 83690; 83735; 84100; 85025; 86140; 87040; 93005; 96365; 99285-25; J2543; J7030; J7050

== ENCOUNTER 2020-05-16 10:47 | Emergency (ER) | payer MEDICAID ==
--- NOTE | 2020-05-16 11:19 | EDM.PDOC ---
ED HPI GENERAL MEDICAL PROBLEM - General Stated Complaint: AMBULANCE Time Seen by Provider: 05/16/20 10:55 Source of Information: Reports: Patient History Limitations: Reports: No Limitations - History of Present Illness INITIAL COMMENTS - FREE TEXT/NARRATIVE: This 50 yo female patient was brought to the ED by [facility] due to increased abdominal pain over the past 2 days. The patient reports she has had numerous surgeries over the past year with her last surgery in [place] on 05/06/20. The patient has a collection bag on her abdomen placed to collect drainage from her surgical wound. The patient reports she does a follow-up appointment with her surgeon tomorrow, but could not put up with the pain any longer. The patient reports she currently has her mother taking care of her at home and things have been going pretty well. The patient was seen in the ED on 05/11/20, but left against medical advice. Duration: Day(s):, Intermittent Location: Reports: Abdomen Quality: Reports: Other Severity: Severe Improves with: Reports: None Worsens with: Reports: None Context: Reports: Other Abdomen Pain Score (Numeric/FACES): 7 - Related Data Allergies Allergy/AdvReac Type Severity Reaction Status Date / Time No Known Allergies Allergy Verified 05/16/20 11:24 Home Meds: Home Meds Albuterol Sulfate [Albuterol Sulfate Hfa] 2 inh INH Q4H PRN 10/06/19 [History] Doxycycline [Vibramycin] 100 mg PO BID 10/27/19 [History] predniSONE [Prednisone] 50 mg PO DAILY 10/27/19 [History] Past Medical History HEENT History: Reports: Impaired Vision Other HEENT History: wears glasses Cardiovascular History: Reports: Hypertension Respiratory History: Reports: Asthma, COPD, Other (See Below) Gastrointestinal History: Reports: None Genitourinary History: Reports: None 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 Musculoskeletal History: Reports: None Neurological History: Reports: None Psychiatric History: Reports: Addiction Endocrine/Metabolic History: Reports: Diabetes, Type II, Obesity/BMI 30+ Hematologic History: Reports: None Immunologic History: Reports: None Oncologic (Cancer) History: Reports: None Dermatologic History: Reports: None - Infectious Disease History Infectious Disease History: Reports: Chicken Pox - Past Surgical History Head Surgeries/Procedures: Reports: None Social & Family History - Family History Family Medical History: No Pertinent Family History - Caffeine Use Caffeine Use: Reports: Coffee - Living Situation & Occupation Living situation: Reports: , with Family Occupation: Unemployed ED ROS GENERAL - Review of Systems Review Of Systems: Comprehensive ROS is negative, except as noted in HPI. ED EXAM, GI/ABD - Physical Exam Exam: See Below Exam Limited By: No Limitations General Appearance: Alert, Moderate Distress, Obese Eyes: Bilateral: Normal Appearance, EOMI Ears: Normal External Exam, Normal Canal, Hearing Grossly Normal, Normal TMs Nose: Normal Inspection, Normal Mucosa, No Blood Throat/Mouth: Normal Inspection, Normal Lips, Normal Teeth, Normal Gums, Normal Oropharynx, Normal Voice, No Airway Compromise Head: Atraumatic, Normocephalic Neck: Normal Inspection, Supple, Non-Tender, Full Range of Motion Respiratory/Chest: Decreased Breath Sounds Cardiovascular: Normal Peripheral Pulses, Regular Rate, Rhythm, No Edema, No Gallop, No JVD, No Murmur, No Rub GI/Abdominal Exam: Guarding, Tender (diffuse tenderness), Other (morbid obesity. Numerous surgical wounds. The patient has a collection bag on her right upper abdomen to collect fluids draining from her abdomen. ) (Female) Exam: Deferred Rectal (Female) Exam: Deferred Extremities: Normal Inspection, Normal Range of Motion, Non-Tender, Normal Capillary Refill, No Pedal Edema Neurological: Alert, Oriented, CN II-XII Intact, Normal Cognition, Normal Gait, Normal Reflexes, No Motor/Sensory Deficits Psychiatric: Normal Affect, Normal Mood Skin Exam: Other (The patient has erythema to her lower abdomen with mild drainage) Lymphatic: No Adenopathy Course - Vital Signs Last Recorded V/S: Last Vital Signs Temp 35.8 C L 05/16/20 11:20 Pulse 82 05/16/20 11:20 Resp 18 05/16/20 11:20 BP 91/53 L 05/16/20 11:20 Pulse Ox 98 05/16/20 11:20 - Orders/Labs/Meds Orders: Active Orders 24 hr Category Date Time Status CULTURE BLOOD [BC] Stat Lab 05/16/20 10:27 Ordered Labs: Laboratory Tests 05/16/20 05/16/20 05/16/20 Range/Units 11: 11:17 12:10 WBC (5.0-10.0) 10^3/uL RBC (4.2-5.4) 10^6/uL Hgb (12.0-16.0) g/dL Hct (37.0-47.0) % MCV (80-100) fL MCH (27.0-34.0) pg MCHC (33.0-35.0) g/dL Plt Count (150-450) 10^3/uL Add Manual Diff Neutrophils % (Manual) (42-75) % Band Neutrophils % % Lymphocytes % (Manual) (20-50) % Monocytes % (Manual) (2-8) % Eosinophils % (Manual) (1-3) % Urine Color Yellow (YELLOW) Urine Appearance Slightly cloudy (CLEAR) Urine pH 5.0 (5.0-9.0) Ur Specific [place] 1.025 (1.005-1.030) Urine Protein Negative (NEGATIVE) Urine Glucose (UA) Negative (NEGATIVE) Urine Ketones Negative (NEGATIVE) Urine Occult Blood Negative (NEGATIVE) Urine Nitrite Negative (NEGATIVE) Urine Bilirubin Negative (NEGATIVE) Urine Urobilinogen 0.2 (0.2-1.0) mg/dL Ur Leukocyte Esterase Negative (NEGATIVE) Urine Opiates Screen Positive H (NEGATIVE) Ur Oxycodone Screen Negative (NEGATIVE) Urine Methadone Screen Negative (NEGATIVE) Ur Barbiturates Screen Negative (NEGATIVE) U Tricyclic Antidepress Negative (NEGATIVE) Ur Phencyclidine Scrn Negative (NEGATIVE) Ur Amphetamine Screen Negative (NEGATIVE) U Methamphetamines Scrn Negative (NEGATIVE) Urine MDMA Screen Negative (NEGATIVE) U Benzodiazepines Scrn Negative (NEGATIVE) Urine Cocaine Screen Negative (NEGATIVE) U Marijuana (THC) Screen Negative (NEGATIVE) SARS CoV-2 RNA Rapid YESI Negative (NEGATIVE) 05/16/20 Range/Units 12:35 WBC 36.2 H* (5.0-10.0) 10^3/uL RBC 4.46 (4.2-5.4) 10^6/uL Hgb 15.2 (12.0-16.0) g/dL Hct 42.4 (37.0-47.0) % MCV 95.1 (80-100) fL MCH 34.1 H (27.0-34.0) pg MCHC 35.8 H (33.0-35.0) g/dL Plt Count 404 (150-450) 10^3/uL Add Manual Diff Yes Neutrophils % (Manual) 74 (42-75) % Band Neutrophils % 11 % Lymphocytes % (Manual) 10 L (20-50) % Monocytes % (Manual) 4 (2-8) % Eosinophils % (Manual) 1 (1-3) % Urine Color (YELLOW) Urine Appearance (CLEAR) Urine pH (5.0-9.0) Ur Specific [place] (1.005-1.030) Urine Protein (NEGATIVE) Urine Glucose (UA) (NEGATIVE) Urine Ketones (NEGATIVE) Urine Occult Blood (NEGATIVE) Urine Nitrite (NEGATIVE) Urine Bilirubin (NEGATIVE) Urine Urobilinogen (0.2-1.0) mg/dL Ur Leukocyte Esterase (NEGATIVE) Urine Opiates Screen (NEGATIVE) Ur Oxycodone Screen (NEGATIVE) Urine Methadone Screen (NEGATIVE) Ur Barbiturates Screen (NEGATIVE) U Tricyclic Antidepress (NEGATIVE) Ur Phencyclidine Scrn (NEGATIVE) Ur Amphetamine Screen (NEGATIVE) U Methamphetamines Scrn (NEGATIVE) Urine MDMA Screen (NEGATIVE) U Benzodiazepines Scrn (NEGATIVE) Urine Cocaine Screen (NEGATIVE) U Marijuana (THC) Screen (NEGATIVE) SARS CoV-2 RNA Rapid YESI (NEGATIVE) Meds: Medications Discontinued Medications Generic Name Dose Route Start Last Admin Trade Name Freq PRN Reason Stop Dose Admin Piperacillin Sod/Tazobactam 100 mls @ 200 mls/hr 05/16/20 13:43 05/16/20 13:50 Sod 3.375 gm/ Sodium Chloride IV 05/16/20 14:12 200 mls/hr ONETIME ONE Administration Departure - Departure Time of Disposition: 14:17 Disposition: DC/Tfer to Acute Hospital 02 Condition: Poor Clinical Impression: Leukocytosis, unspecified Qualifiers: Leukocytosis type: unspecified Qualified Code(s): D72.829 - Elevated white blood cell count, unspecified Abdominal pain Qualifiers: Abdominal location: unspecified location Qualified Code(s): R10.9 - Unspecified abdominal pain Ascites Qualifiers: Ascites type: other type Qualified Code(s): R18.8 - Other ascites - Discharge Information *PRESCRIPTION DRUG MONITORING PROGRAM REVIEWED*: Not Applicable *COPY OF PRESCRIPTION DRUG MONITORING REPORT IN PATIENT HELENE: Not Applicable Forms: Interfacility Transfer EMTALA Care Plan Goals: Discussed the patient's history, examination, lab results, CT results and treatments with Dr. Linton (ED provider at [facility]). Dr. Linton accepted the patient for continued evaluation and further management at their facility. The patient will be transported by [facility]. Sepsis Event Note (ED) - Focused Exam Vital Signs: Vital Signs Temp Pulse Resp BP Pulse Ox 05/16/20 11:20 35.8 C L 82 18 91/53 L 98 - My Orders Last 24 Hours: My Active Orders 05/16/20 10:27 CULTURE BLOOD [BC] Stat - Assessment/Plan Last 24 Hours: My Active Orders 05/16/20 10:27 CULTURE BLOOD [BC] Stat
--- NOTE | 2020-05-16 13:24 | CT ---
EXAMINATION: Abdomen Pelvis wo Cont SEX: Female AGE: 50 years CLINICAL HISTORY: 50-year-old hypertensive 231 pound female smoker with diffuse abdominal PAIN. Gallbladder surgery 06 May 2020. "Draining" right upper quadrant wound and WBC 36,000. Scan technique: Volume acquisition of data from the abdomen and pelvis obtained without oral or IV contrast (unable to access IV site) while patient was lying supine on the Siemens multislice scanner [place], [place]. All data archived in the PACS system for storage, reformatting axial/sagittal/coronal planes and study. Comparison exams 28 February; 24 April; and April, suggested "colitis or inflammatory bowel cecum, terminal ileum and ascending colon; diverticulosis descending/sigmoid colon; distended gallbladder/cholecystitis; probable, acute pancreatitis with ascites". Interpretation: Abnormal. 1. ASCITES i.e. peritoneal fluid accumulation around the liver and in the dependent pelvis progressively increased in volume since recent CT exam April 30. Cholecystectomy (surgical clips gallbladder fossa). 2. Pancreas normal size, anatomic configuration and homogeneous density without sign of pancreatic mass lesion, abnormal pancreatic duct dilatation, calcifications, or peripancreatic inflammation/phlegmon. 3. Liver normal size, anatomic configuration and homogeneous density. No intrahepatic ductal dilatation. 4. Unenhanced stomach, spleen, adrenal glands and kidneys unremarkable. No renal cortical mass lesion, signs of urolithiasis or obstructive uropathy (indwelling urinary catheter collapsed bladder). 5. Small intestine, terminal ileum (incomplete intussusception noted on axial slice #58 unchanged since axial #[address] exam), and large bowel (colon) unremarkable except for diverticula LLQ. 6. *Generalized subcutaneous edema of the soft tissues (anasarca) NEW since April exam and fluid extending along abdominal wall anteriorly (R>L) but no isolated focal extraperitoneal, subcutaneous fluid collections or air suggesting abscess or hematoma. Fasciitis? No colostomy or ventral wall hernias. 7. No intraperitoneal abdominal or pelvic mass lesion. No sign of mechanical bowel obstruction. No free air. 8. Calcifications normal caliber aortoiliac vessels. Chronic lower lumbar L5-S1 disc disease/spondylosis. 9. Lung bases clear. No atelectasis/infiltrate. Normal cardiac silhouette. No pericardial or pleural effusions.
[2020-05-16] MEDS ORDERED: Piperacillin/Tazobactam 3.375 GM in Sodium Chloride 0.9% 100 ML IV ONE (13:43)
== END 2020-05-16 15:30 ==
LOC: DL.ED 10:47
DX: D72.829 Elevated white blood cell count, unspecified (principal); R18.8 Other ascites; I10 Essential (primary) hypertension; J44.9 Chronic obstructive pulmonary disease, unspecified; E11.9 Type 2 diabetes mellitus without complications; E66.9 Obesity, unspecified; Z20.828 Contact with and (suspected) exposure to other viral communicable diseases; Z68.38 Body mass index [BMI] 38.0-38.9, adult
CPT/HCPCS: 36415; 51702; 74176; 80305; 81003; 85025; 87040; 87635; 96365; 99285; J2543; J7050; U0002

== ENCOUNTER 2020-06-08 21:53 | Emergency (ER) | payer MEDICAID ==
--- NOTE | 2020-06-08 22:30 | EDM.PDOC ---
ED HPI GENERAL MEDICAL PROBLEM - General Chief Complaint: Abdominal Pain Stated Complaint: SEVERE STOMACH PAIN Time Seen by Provider: 06/08/20 22:10 Source of Information: Reports: Patient History Limitations: Reports: No Limitations - History of Present Illness INITIAL COMMENTS - FREE TEXT/NARRATIVE: This 50 yo female patient reports to the ED due to increased abdominal pain and abdominal distension. The patient reports she was hospitalized at [facility] in [place] for the past month. During her stay in the hospital, the patient reports she was having a fluid drained every week. Upon discharge, the patient was advised that [facility] would be contacting the patient to arrange outpatient treatment, but the patient has not heard anything from [facility]. The patient reports she attempted to call the number given to her, but there was no answer. Onset: Gradual Duration: Day(s): Location: Reports: Abdomen Quality: Reports: Ache, Dull, Pressure Severity: Moderate Improves with: Reports: None Worsens with: Reports: None Context: Reports: Other Abdominal Pain Score (Numeric/FACES): 9 - Related Data Allergies Allergy/AdvReac Type Severity Reaction Status Date / Time No Known Allergies Allergy Verified 06/08/20 22:04 Home Meds: Home Meds Albuterol Sulfate [Albuterol Sulfate Hfa] 2 inh INH Q4H PRN 10/06/19 [History] Folic Acid 1 mg PO DAILY 06/08/20 [History] Insulin Lispro [Humalog] 1 unit SQ QID 06/08/20 [History] Midodrine 15 mg PO TIDAC 06/08/20 [History] Mupirocin Cream [Bactroban Crm] 1 applic TOP TID 06/08/20 [History] Nicotine [Nicotine Patch] 1 applic TOP DAILY 06/08/20 [History] Nystatin 1 applic TOP BID 06/08/20 [History] Octreotide [SandoSTATIN] 500 mcg SQ TID 06/08/20 [History] Pregabalin [Lyrica] 1 tab PO BID 06/08/20 [History] Thiamine [Vitamin B-1] 100 mg PO DAILY 06/08/20 [History] oxyCODONE 2.5 mg PO Q6H PRN 06/08/20 [History] witch Kaylen [Tucks] 1 pad TOP QID PRN 06/08/20 [History] Past Medical History HEENT History: Reports: Impaired Vision Other HEENT History: wears glasses Cardiovascular History: Reports: Hypertension Respiratory History: Reports: Asthma, COPD Gastrointestinal History: Reports: None, Other (See Below) Other Gastrointestinal History: Ascites Genitourinary History: Reports: None PLATE FITTER History: Reports: None Musculoskeletal History: Reports: None Neurological History: Reports: None Psychiatric History: Reports: Addiction Endocrine/Metabolic History: Reports: Diabetes, Type II, Obesity/BMI 30+ Hematologic History: Reports: None Immunologic History: Reports: None Oncologic (Cancer) History: Reports: None Dermatologic History: Reports: None - Infectious Disease History Infectious Disease History: Reports: Chicken Pox - Past Surgical History Head Surgeries/Procedures: Reports: None GI Surgical History: Reports: Cholecystectomy, Colonoscopy, Polypectomy Social & Family History - Family History Family Medical History: No Pertinent Family History - Tobacco Use Tobacco Use Status *Q: Current Every Day Tobacco User Years of Tobacco use: 30 Packs/Tins Daily: 0.1 Second Hand Smoke Exposure: Yes - Caffeine Use Caffeine Use: Reports: Coffee - Recreational Drug Use Recreational Drug Use: No - Living Situation & Occupation Living situation: Reports: , with Family Occupation: Unemployed ED ROS GENERAL - Review of Systems Review Of Systems: Comprehensive ROS is negative, except as noted in HPI. ED EXAM, GI/ABD - Physical Exam Exam: See Below Exam Limited By: No Limitations General Appearance: Alert, WD/WN, Moderate Distress Eyes: Bilateral: Normal Appearance, EOMI Ears: Normal External Exam, Normal Canal, Hearing Grossly Normal, Normal TMs Nose: Normal Inspection, Normal Mucosa, No Blood Throat/Mouth: Normal Inspection, Normal Lips, Normal Teeth, Normal Gums, Normal Oropharynx, Normal Voice, No Airway Compromise Head: Atraumatic, Normocephalic Neck: Normal Inspection, Supple, Non-Tender, Full Range of Motion Respiratory/Chest: No Respiratory Distress, Lungs Clear, Normal Breath Sounds, No Accessory Muscle Use, Chest Non-Tender GI/Abdominal Exam: Normal Bowel Sounds, Soft, Non-Tender, No Organomegaly, No Abnormal Bruit, No Mass, Pelvis Stable, Distended (Female) Exam: Deferred Rectal (Female) Exam: Deferred Back Exam: Normal Inspection, Full Range of Motion, NT Extremities: Normal Inspection, Normal Range of Motion, Non-Tender, Normal Ca pillary Refill, No Pedal Edema Neurological: Alert, Oriented, CN II-XII Intact, Normal Cognition, Normal Gait, Normal Reflexes, No Motor/Sensory Deficits Psychiatric: Normal Affect, Normal Mood Skin Exam: Warm, Dry, Intact, Normal Color, No Rash Lymphatic: No Adenopathy Course - Vital Signs Last Recorded V/S: Last Vital Signs Temp 36.8 C 06/08/20 22:17 Pulse 86 06/08/20 22:17 Resp 20 06/08/20 22:17 BP 99/57 L 06/08/20 22:17 Pulse Ox 100 06/08/20 22:17 - Orders/Labs/Meds Orders: Active Orders 24 hr Category Date Time Status CULTURE BLOOD [BC] Stat Lab 06/08/20 22:09 Ordered DRUG SCREEN URINE BIORAD [URCHEM] Stat Lab 06/08/20 22:09 Ordered UA RFX CATHERINE AND CULT IF INDIC [URIN] Urgent Lab 06/08/20 22:09 Ordered Labs: Laboratory Tests 06/08/20 06/08/20 06/08/20 Range/Units 22:25 22:25 22:25 WBC 9.0 (5.0-10.0) 10^3/uL RBC 3.27 L (4.2-5.4) 10^6/uL Hgb 10.6 L D (12.0-16.0) g/dL Hct 33.3 L (37.0-47.0) % MCV 101.8 H D (80-100) fL MCH 32.4 (27.0-34.0) pg MCHC 31.8 L (33.0-35.0) g/dL Plt Count 184 D (150-450) 10^3/uL Neut % (Auto) 63.8 (42.2-75.2) % Lymph % (Auto) 27.4 (20.5-50.1) % [place] % (Auto) 6.1 (2-8) % Eos % (Auto) 2.1 (1.0-3.0) % Baso % (Auto) 0.6 (0.0-1.0) % Sodium 137 D (136-145) mmol/L Potassium 3.9 D (3.5-5.1) mmol/L Chloride 104 D (98-107) mmol/L Carbon Dioxide 25 (21-32) mmol/L Anion Gap 11.9 (7-13) mEq/L BUN 12 D (7-18) mg/dL Creatinine 0.91 D (0.55-1.02) mg/dL Est Cr Clr Drug Dosing 68.03 mL/min Estimated GFR (MDRD) > 60 BUN/Creatinine Ratio 13.2 (No establ ref range) Glucose 138 H (74-99) mg/dL Calcium 8.1 L (8.5-10.1) mg/dL Magnesium 1.7 L (1.8-2.4) mg/dL Total Bilirubin 0.4 (0.2-1.0) mg/dL AST 44 H (15-37) U/L ALT 25 (14-59) U/L Alkaline Phosphatase 213 H (46-116) U/L Troponin I 0.018 (0.000-0.056) ng/mL Total Protein 5.6 L (6.4-8.2) g/dL Albumin 2.5 L (3.4-5.0) g/dL Globulin 3.1 Albumin/Globulin Ratio 0.81 Amylase 35 (25-115) U/L Lipase 113 (73-393) U/L Salicylates < 2.8 L (2.8-20(Therapeutic)) mg/dL Acetaminophen 0 L (10-30 (Therapeutic)) ug/mL Ethyl Alcohol < 3 (0) mg/dL Departure - Departure Time of Disposition: 00:19 Disposition: Against Medical Advice 07 Condition: Undetermined Clinical Impression: Left against medical advice - Discharge Information Forms: ED Department Discharge Care Plan Goals: The patient left prior to complete evaluation Sepsis Event Note (ED) - Evaluation Sepsis Screening Result: No Definite Risk - Focused Exam Vital Signs: Vital Signs Temp Pulse Resp BP Pulse Ox 06/08/20 22:17 36.8 C 86 20 99/57 L 100 - My Orders Last 24 Hours: My Active Orders 06/08/20 22:09 CULTURE BLOOD [BC] Stat DRUG SCREEN URINE BIORAD [URCHEM] Stat UA RFX CATHERINE AND CULT IF INDIC [URIN] Urgent - Assessment/Plan Last 24 Hours: My Active Orders 06/08/20 22:09 CULTURE BLOOD [BC] Stat DRUG SCREEN URINE BIORAD [URCHEM] Stat UA RFX CATHERINE AND CULT IF INDIC [URIN] Urgent
[2020-06-08 23:01] LABS: ACETAMINOPHEN 0 ug/mL (10-30 (Therapeutic)); ANION GAP 11.9 mEq/L (7-13); CHLORIDE,CL 104 mmol/L (98-107); SODIUM,NA 137 mmol/L (136-145)
== END 2020-06-09 00:15 | disposition left against medical advice (07) ==
LOC: DL.ED 21:53
DX: R10.9 Unspecified abdominal pain (principal); I10 Essential (primary) hypertension; J44.9 Chronic obstructive pulmonary disease, unspecified; E11.9 Type 2 diabetes mellitus without complications; E66.9 Obesity, unspecified; F17.210 Nicotine dependence, cigarettes, uncomplicated; Z79.4 Long term (current) use of insulin; Z79.899 Other long term (current) drug therapy; Z68.38 Body mass index [BMI] 38.0-38.9, adult
CPT/HCPCS: 36415; 80053; 80305-QW; 80307; 81003; 82150; 83690; 83735; 84484; 85025; 87040; 93005; 99282; 99284-25

== ENCOUNTER 2021-02-01 20:35 | Emergency (ER) | payer SELFPAY | END 2021-02-01 20:51 | disposition left against medical advice (07) | LOC: DL.ED 20:35 | DX: Z53.21 Procedure and treatment not carried out due to patient leaving prior to being seen by health care provider (principal) ==